=== PATIENT | female | born 1990 | race Caucasian/White ===

== ENCOUNTER 2016-06-30 13:15 | Emergency (ER) | payer OTHER, SELFPAY ==
--- NOTE | 2016-06-30 16:34 | EDDOCDS ---
Nurse's Notes [facility] Name: Gema Luna Age: 25 yrs Sex: Female : 1990 Arrival Date: 06/30/2016 Time: 13:15 Bed Triage 1 Private MD: Erika Najera M. Diagnosis: Other chest pain-reproducible;Strain of muscle and tendon of back wall of thorax Presentation: 06/30 13:23 Presenting complaint: Patient states: chest pain and tightness intermittently x1 week. ttb Worsening today. "Anxious" because it happens quickly. Some SOB. Denies Gi symptoms. Denies dizziness. Aspirin was not taken prior to arrival. Adult Sepsis Screening: The patient does not have new or worsening altered mentation. Patient's respiratory rate is less than 22. Systolic blood pressure is greater than 100. Patient has a qSOFA score of 0- Negative Sepsis Screen. Suicide/Homicide risk assessment- the patient denies having any suicidal and/or homicidal ideations and does not present with any other emotional, behavioral or mental health complaints. Status: Patient is not a septic tank servicer or dependent. Transition of care: patient was not received from another setting of care. 13:23 Acuity: AMELIA Level 3 ttb 13:23 Method Of Arrival: Walkin/Carried/Asstd ttb Triage Assessment: 13:25 General: Appears uncomfortable, well nourished, well groomed, Behavior is anxious, ttb appropriate for age, cooperative, pleasant, restless. Pain: Location: generalized chest, middle Pain currently is 5 out of 10 on a pain scale. HIV screening NA for this visit Offered previously. Neurological: Level of Consciousness is awake, alert. Cardiovascular: Chest pain is described as Pain is 5 out of 10 on a pain scale. radiates Does not radiate. episodes are intermittent began intermittent prior to arrival x1 week. Respiratory: No deficits noted. Airway is patent Respiratory effort is even, unlabored, Denies cough, shortness of breath. GI: Denies nausea, vomiting, pain. : Denies burning with urination. Derm: Skin is normal. Injury Description: No known injury. CORPORATE DIRECTOR OF HUMAN RESOURCES: 13:25 LMP N/A - control method ttb Historical: - Allergies: SULFA (SULFONAMIDES); - Home Meds: 1. none - PMHx: none; - PSHx: Cesearean Section; - Social history: Smoking status: Patient states was never smoker of tobacco. Patient/guardian denies using alcohol, street drugs, No barriers to communication noted, The patient speaks fluent Greek, Speaks appropriately for age. - Family history: Not pertinent. - : The pt / caregiver states he / she is not on anticoagulants. Home medication list is obtained from the patient. - Exposure Risk Screening:: None identified. Screenin:28 Screening information is obtained from the patient. Fall risk: No risks identified. ttb Assistance ADL's: requires no assistance with activities of daily living. Abuse/DV Screen: The patient / caregiver reports he/she is: not in a situation that causes fear, pain or injury. Nutritional screening: No deficits noted. Advance Directives: Currently, there is no health care proxy. home support is adequate. Assessment: 16:28 Adult Sepsis Screening: The patient does not have new or worsening altered mentation. ttb Patient's respiratory rate is less than 22. Systolic blood pressure is greater than 100. Patient has a qSOFA score of 0- Negative Sepsis Screen. General: Appears in no apparent distress, well nourished, well groomed, Behavior is anxious, appropriate for age, cooperative, pleasant. Pain: Location: mid chest. Neurological: Level of Consciousness is awake, alert. Cardiovascular: Rhythm is see EKG report. Respiratory: No deficits noted. Airway is patent Respiratory effort is even, unlabored, Denies cough, shortness of breath. GI: Denies vomiting. Derm: Skin is normal. Injury Description: No known injury. Vital Signs: 13:16 BP 169 / 83; Pulse 108; Resp 20; Temp 98.2(O); Pulse Ox 100% on R/A; Weight 178.72 kg elp (R); Height 5 ft. 7 in. (170.18 cm) (R); Pain 5/10; 16:28 BP 169 / 89; Pulse 101; Resp 18; Temp 99.3; Pulse Ox 100% ; Pain 4/10; cmb 13:16 Body Mass Index 61.71 (178.72 kg, 170.18 cm) [facility] Vitals: 13:16 Log In Time: June 30, 2016 at 13:14. [facility] ED Course: 13:16 Patient visited by Adalgisa Griffin PCA. elp 13:16 Erika Najera is Private Physician. elp 13:16 Patient moved to Waiting elp 13:18 Patient visited by Adalgisa Griffin PCA. elp 13:18 Patient moved to Pre RCE elp 13:24 Triage Initiated ttb 13:35 EKG done. (by ED staff). Reviewed by Medina Haro MD. cmb 13:42 Patient name changed from Gema\\S\\Erika\\S\\Luna\\S\\ to Gema\\S\\A\\S\\Luna. EDMS 13:43 [facility] Payment Agreement was scanned into [employer] and attached to record. lg 15:23 Patient moved to Triage 1 cmb 16:08 [facility]. btw 16:08 Medina Haro MD is Attending Physician. btw 16:08 Patient visited by Stanford Valero PA. btw 16:26 Erika Najera is Referral Physician. btw 16:28 The patient / caregiver is instructed regarding the plan of care and ED course. ttb Accompanied by Family Member, Patient has correct armband on for positive identification. see EKG. 16:28 No IV's were initiated during this patient's visit. No procedures done that require ttb assistance. Order Results: There are currently no results for this order. Outcome: 16:27 Discharge ordered by Provider. btw 16:28 Discharge Assessment: Patient awake, alert and oriented x 3. No cognitive and/or ttb functional deficits noted. Patient verbalized understanding of disposition instructions. Patient awake and alert. patient administered narcotics - no. The following High Risk Discharge criteria are identified: None. Discharged to home ambulatory, with family. Condition: good Condition: stable Condition: improved. Discharge instructions given to patient, family, Instructed on discharge instructions, follow up and referral plans. medication usage, Demonstrated understanding of instructions, medications, Pt was receptive of discharge instructions/ teaching. Prescriptions given X 1, 2. No special radiology studies were completed. Property :Personal belongings accompany Pt. 16:33 Patient left the ED. ttb Signatures: Dispatcher [employer] EDSD Chinmay Chua, Mor Reg lg Stanford Valero PA PA btw Janie Mujica cmb Kay Cruz RN RN ttb Patchen, Adalgisa, SUPPLY ROOM CLERK SUPPLY ROOM CLERK elp MTDD
--- NOTE | 2016-06-30 16:34 | EDDOCDS ---
Physician Documentation [facility] Name: Gema Luna Age: 25 yrs Sex: Female : 1990 Arrival Date: 06/30/2016 Time: 13:15 Bed Triage 1 Private MD: Erika Najera M. Disposition: 06/30/16 16:27 Discharged to Home/Self Care. Impression: Other chest pain - reproducible, Strain of muscle and tendon of back wall of thorax. - Condition is Stable. - Discharge Instructions: Chest Wall Pain, Sglr-fg-Judi, Thoracic Strain, Sjqx-sa-Ozzp, Nonspecific Chest Pain, Obeh-uh-Dzff. - Prescriptions for Diclofenac Sodium 75 mg Oral Tablet, Delayed Release (E.C.) - take 1 tablet by ORAL route 2 times per day; 30 tablet. Robaxin- 750 750 mg Oral Tablet - take 1 tablet by ORAL route every 6 hours As needed; 40 tablet. - Medication Reconciliation, Local Pharmacy Hours form. - Follow up: Erika Najera; When: Call to arrange an appointment; Reason: Further diagnostic work-up, Recheck today's complaints, Continuance of care. - Problem is new. - Symptoms are unchanged. Historical: - Allergies: SULFA (SULFONAMIDES); - Home Meds: 1. none - PMHx: none; - PSHx: Cesearean Section; - Social history: Smoking status: Patient states was never smoker of tobacco. Patient/guardian denies using alcohol, street drugs, No barriers to communication noted, The patient speaks fluent Divehi, Speaks appropriately for age. - Family history: Not pertinent. - : The pt / caregiver states he / she is not on anticoagulants. Home medication list is obtained from the patient. - Exposure Risk Screening:: None identified. QUALITY ASSURANCE MONITOR BODY: 06/30 13:25 LMP N/A - control method ttb Vital Signs: 13:16 BP 169 / 83; Pulse 108; Resp 20; Temp 98.2(O); Pulse Ox 100% on R/A; Weight 178.72 kg / elp 394.01 lbs (R); Height 5 ft. 7 in. (170.18 cm) (R); Pain 5/10; 16:28 BP 169 / 89; Pulse 101; Resp 18; Temp 99.3; Pulse Ox 100% ; Pain 4/10; cmb 13:16 Body Mass Index 61.71 (178.72 kg, 170.18 cm) elp MDM: 13:28 ECG WITH READING ER PHYS+CARDIAG ordered. EDMS 13:43 [facility] Payment Agreement was scanned into [employer] and attached to record. lg 16:12 Financial registration complete. [email or web address] Signatures: Dispatcher [employer] EDMS Chinmay Chua, Reg Reg lg Stanford Valero, Kay Best RN RN Anila Trotter The chart was reviewed and I authenticate all verbal orders and agree with the evaluation and treatment provided.Attachments: 13:43 [facility] Payment Agreement lg MTDD
--- NOTE | 2016-07-01 06:48 | ECGEPIP ---
Stationary ECG Study [facility] - ED Test Date: 2016-06-30 Pat Name: JARED CASTELLON Department: Room: - Gender: F Pole Framer: hieu : 1990 Requested By: MATHEW Pablo Order Number: [id number] Reading MD: Rianna Garcia Measurements Intervals [place] Rate: 100 P: 39 VT: 156 QRS: 26 QRSD: 96 T: 29 QT: 349 QTc: 450 Interpretive Statements SINUS TACHYCARDIA ABNORMAL RHYTHM ECG SIMILAR 01/31/13 Electronically Signed On 07-01-2016 6:48:35 EST by Rianna Garcia
--- NOTE | 2016-07-02 17:33 | EDDOCDS ---
Physician Documentation [facility] Name: Gema Luna Age: 25 yrs Sex: Female : 1990 Arrival Date: 06/30/2016 Time: 13:15 Bed Triage 1 Private MD: Erika Najera M. Disposition: 06/30/16 16:27 Discharged to Home/Self Care. Impression: Other chest pain - reproducible, Strain of muscle and tendon of back wall of thorax. - Condition is Stable. - Discharge Instructions: Chest Wall Pain, Tuny-uz-Ugnp, Thoracic Strain, Lrnx-dy-Ggzd, Nonspecific Chest Pain, Thro-kv-Tcau. - Prescriptions for Diclofenac Sodium 75 mg Oral Tablet, Delayed Release (E.C.) - take 1 tablet by ORAL route 2 times per day; 30 tablet. Robaxin- 750 750 mg Oral Tablet - take 1 tablet by ORAL route every 6 hours As needed; 40 tablet. - Medication Reconciliation, Local Pharmacy Hours form. - Follow up: Erika Najera; When: Call to arrange an appointment; Reason: Further diagnostic work-up, Recheck today's complaints, Continuance of care. - Problem is new. - Symptoms are unchanged. Historical: - Allergies: SULFA (SULFONAMIDES); - Home Meds: 1. none - PMHx: none; - PSHx: Cesearean Section; - Social history: Smoking status: Patient states was never smoker of tobacco. Patient/guardian denies using alcohol, street drugs, No barriers to communication noted, The patient speaks fluent Tamazight, Speaks appropriately for age. - Family history: Not pertinent. - : The pt / caregiver states he / she is not on anticoagulants. Home medication list is obtained from the patient. - Exposure Risk Screening:: None identified. SAS STATISTICAL PROGRAMMER: 06/30 13:25 LMP N/A - control method ttb Vital Signs: 13:16 BP 169 / 83; Pulse 108; Resp 20; Temp 98.2(O); Pulse Ox 100% on R/A; Weight 178.72 kg / elp 394.01 lbs (R); Height 5 ft. 7 in. (170.18 cm) (R); Pain 5/10; 16:28 BP 169 / 89; Pulse 101; Resp 18; Temp 99.3; Pulse Ox 100% ; Pain 4/10; cmb 13:16 Body Mass Index 61.71 (178.72 kg, 170.18 cm) elp MDM: 13:28 ECG WITH READING ER PHYS+CARDIAG ordered. EDMS 13:43 [facility] Payment Agreement was scanned into [employer] and attached to record. lg 16:12 Financial registration complete. gjb 07/01 12:12 T-Sheet-- Draft Copy was scanned into [employer] and attached to record. gb 12:12 ECG/EKG was scanned into [employer] and attached to record. gb Signatures: Dispatcher [employer] EDMS Neida Su, Reg Reg gb Chinmay Chua, Reg Reg lg Stanford Valero PA PA btw Conner, Teresa, RN RN Anila Trotter The chart was reviewed and I authenticate all verbal orders and agree with the evaluation and treatment provided.Attachments: 06/30 13:43 [facility] Payment Agreement lg 07/01 12:12 T-Sheet-- Draft Copy gb 12:12 ECG/EKG gb Chart Complete MTDD
--- NOTE | 2016-07-02 17:34 | EDDOCDS ---
Physician Documentation [facility] Name: Gema Luna Age: 25 yrs Sex: Female : 1990 Arrival Date: 06/30/2016 Time: 13:15 Bed Triage 1 Private MD: Erika Najera M. Disposition: 06/30/16 16:27 Discharged to Home/Self Care. Impression: Other chest pain - reproducible, Strain of muscle and tendon of back wall of thorax. - Condition is Stable. - Discharge Instructions: Chest Wall Pain, Hdjg-nv-Zsxo, Thoracic Strain, Lejc-vh-Kumy, Nonspecific Chest Pain, Jhqi-sc-Nvvp. - Prescriptions for Diclofenac Sodium 75 mg Oral Tablet, Delayed Release (E.C.) - take 1 tablet by ORAL route 2 times per day; 30 tablet. Robaxin- 750 750 mg Oral Tablet - take 1 tablet by ORAL route every 6 hours As needed; 40 tablet. - Medication Reconciliation, Local Pharmacy Hours form. - Follow up: Erika Najera; When: Call to arrange an appointment; Reason: Further diagnostic work-up, Recheck today's complaints, Continuance of care. - Problem is new. - Symptoms are unchanged. Historical: - Allergies: SULFA (SULFONAMIDES); - Home Meds: 1. none - PMHx: none; - PSHx: Cesearean Section; - Social history: Smoking status: Patient states was never smoker of tobacco. Patient/guardian denies using alcohol, street drugs, No barriers to communication noted, The patient speaks fluent Khmer, Speaks appropriately for age. - Family history: Not pertinent. - : The pt / caregiver states he / she is not on anticoagulants. Home medication list is obtained from the patient. - Exposure Risk Screening:: None identified. MUSIC AGENT: 06/30 13:25 LMP N/A - control method ttb Vital Signs: 13:16 BP 169 / 83; Pulse 108; Resp 20; Temp 98.2(O); Pulse Ox 100% on R/A; Weight 178.72 kg / elp 394.01 lbs (R); Height 5 ft. 7 in. (170.18 cm) (R); Pain 5/10; 16:28 BP 169 / 89; Pulse 101; Resp 18; Temp 99.3; Pulse Ox 100% ; Pain 4/10; cmb 13:16 Body Mass Index 61.71 (178.72 kg, 170.18 cm) elp MDM: 13:28 ECG WITH READING ER PHYS+CARDIAG ordered. EDMS 13:43 [facility] Payment Agreement was scanned into [employer] and attached to record. lg 16:12 Financial registration complete. gjb 07/01 12:12 T-Sheet-- Draft Copy was scanned into [employer]HOST and attached to record. gb 12:12 ECG/EKG was scanned into [employer] and attached to record. gb Signatures: Dispatcher [employer] EDMS Neida Su, Reg Reg gb Chinmay Chua, Reg Reg lg Stanford Valero PA PA btw Conner, Teresa, RN RN Anila Trotter The chart was reviewed and I authenticate all verbal orders and agree with the evaluation and treatment provided.Attachments: 06/30 13:43 [facility] Payment Agreement lg 07/01 12:12 T-Sheet-- Draft Copy gb 12:12 ECG/EKG gb Chart Complete MTDD
--- NOTE | 2016-07-02 17:35 | EDDOCDS ---
Nurse's Notes [facility] Name: Gema Luna Age: 25 yrs Sex: Female : 1990 Arrival Date: 06/30/2016 Time: 13:15 Bed Triage 1 Private MD: Erika Najera M. Diagnosis: Other chest pain-reproducible;Strain of muscle and tendon of back wall of thorax Presentation: 06/30 13:23 Presenting complaint: Patient states: chest pain and tightness intermittently x1 week. ttb Worsening today. "Anxious" because it happens quickly. Some SOB. Denies Gi symptoms. Denies dizziness. Aspirin was not taken prior to arrival. Adult Sepsis Screening: The patient does not have new or worsening altered mentation. Patient's respiratory rate is less than 22. Systolic blood pressure is greater than 100. Patient has a qSOFA score of 0- Negative Sepsis Screen. Suicide/Homicide risk assessment- the patient denies having any suicidal and/or homicidal ideations and does not present with any other emotional, behavioral or mental health complaints. Status: Patient is not a adult services librarian or dependent. Transition of care: patient was not received from another setting of care. 13:23 Acuity: AMELIA Level 3 ttb 13:23 Method Of Arrival: Walkin/Carried/Asstd ttb Triage Assessment: 13:25 General: Appears uncomfortable, well nourished, well groomed, Behavior is anxious, ttb appropriate for age, cooperative, pleasant, restless. Pain: Location: generalized chest, middle Pain currently is 5 out of 10 on a pain scale. HIV screening NA for this visit Offered previously. Neurological: Level of Consciousness is awake, alert. Cardiovascular: Chest pain is described as Pain is 5 out of 10 on a pain scale. radiates Does not radiate. episodes are intermittent began intermittent prior to arrival x1 week. Respiratory: No deficits noted. Airway is patent Respiratory effort is even, unlabored, Denies cough, shortness of breath. GI: Denies nausea, vomiting, pain. : Denies burning with urination. Derm: Skin is normal. Injury Description: No known injury. MANAGER MARKET RESEARCH: 13:25 LMP N/A - control method ttb Historical: - Allergies: SULFA (SULFONAMIDES); - Home Meds: 1. none - PMHx: none; - PSHx: Cesearean Section; - Social history: Smoking status: Patient states was never smoker of tobacco. Patient/guardian denies using alcohol, street drugs, No barriers to communication noted, The patient speaks fluent Turkish, Speaks appropriately for age. - Family history: Not pertinent. - : The pt / caregiver states he / she is not on anticoagulants. Home medication list is obtained from the patient. - Exposure Risk Screening:: None identified. Screenin:28 Screening information is obtained from the patient. Fall risk: No risks identified. ttb Assistance ADL's: requires no assistance with activities of daily living. Abuse/DV Screen: The patient / caregiver reports he/she is: not in a situation that causes fear, pain or injury. Nutritional screening: No deficits noted. Advance Directives: Currently, there is no health care proxy. home support is adequate. Assessment: 16:28 Adult Sepsis Screening: The patient does not have new or worsening altered mentation. ttb Patient's respiratory rate is less than 22. Systolic blood pressure is greater than 100. Patient has a qSOFA score of 0- Negative Sepsis Screen. General: Appears in no apparent distress, well nourished, well groomed, Behavior is anxious, appropriate for age, cooperative, pleasant. Pain: Location: mid chest. Neurological: Level of Consciousness is awake, alert. Cardiovascular: Rhythm is see EKG report. Respiratory: No deficits noted. Airway is patent Respiratory effort is even, unlabored, Denies cough, shortness of breath. GI: Denies vomiting. Derm: Skin is normal. Injury Description: No known injury. Vital Signs: 13:16 BP 169 / 83; Pulse 108; Resp 20; Temp 98.2(O); Pulse Ox 100% on R/A; Weight 178.72 kg elp (R); Height 5 ft. 7 in. (170.18 cm) (R); Pain 5/10; 16:28 BP 169 / 89; Pulse 101; Resp 18; Temp 99.3; Pulse Ox 100% ; Pain 4/10; cmb 13:16 Body Mass Index 61.71 (178.72 kg, 170.18 cm) [facility] Vitals: 13:16 Log In Time: June 30, 2016 at 13:14. [facility] ED Course: 13:16 Patient visited by Adalgisa Griffin PCA. elp 13:16 Erika Najera is Private Physician. elp 13:16 Patient moved to Waiting elp 13:18 Patient visited by Adalgisa Griffin PCA. elp 13:18 Patient moved to Pre RCE elp 13:24 Triage Initiated ttb 13:35 EKG done. (by ED staff). Reviewed by Medina Haro MD. cmb 13:42 Patient name changed from Gema\\S\\Erika\\S\\Luna\\S\\ to Gema\\S\\A\\S\\Luna. EDMS 13:43 [facility] Payment Agreement was scanned into [employer] and attached to record. lg 15:23 Patient moved to Triage 1 cmb 16:08 Stanford Valero PA is PHCP. btw 16:08 Medina Haro MD is Attending Physician. btw 16:08 Patient visited by Stanford Valero PA. btw 16:26 Erika Najera is Referral Physician. btw 16:28 The patient / caregiver is instructed regarding the plan of care and ED course. ttb Accompanied by Family Member, Patient has correct armband on for positive identification. see EKG. 16:28 No IV's were initiated during this patient's visit. No procedures done that require ttb assistance. 07/01 06:54 EKG-ADULT Returned. EDMS 12:12 T-Sheet-- Draft Copy was scanned into [employer] and attached to record. gb 12:12 ECG/EKG was scanned into [employer] and attached to record. gb Order Results: Radiology Order: EKG-ADULT Test: EKG-ADULT REASON FOR EXAMINATION: Chest Pain; Stationary ECG Study; [facility] - ED; ; Test Date: 2016-06-30; Pat Name: GEMA LUNA Department:; Room: -; Gender: F Mailing Section Clerk: hieu; : 1990 Requested By: MEDINA Pablo; Order Number: [id number] Reading MD: Rianna Garcia; Measurements; Intervals [place]; Rate: 100 P: 39; IA: 156 QRS: 26; QRSD: 96 T: 29; QT: 349; QTc: 450; Interpretive Statements; SINUS TACHYCARDIA; ABNORMAL RHYTHM ECG; SIMILAR 01/31/13; Electronically Signed On 07-01-2016 6:48:35 EST by Rianna Garcia; Outcome: 06/30 16:27 Discharge ordered by Provider. btw 16:28 Discharge Assessment: Patient awake, alert and oriented x 3. No cognitive and/or ttb functional deficits noted. Patient verbalized understanding of disposition instructions. Patient awake and alert. patient administered narcotics - no. The following High Risk Discharge criteria are identified: None. Discharged to home ambulatory, with family. Condition: good Condition: stable Condition: improved. Discharge instructions given to patient, family, Instructed on discharge instructions, follow up and referral plans. medication usage, Demonstrated understanding of instructions, medications, Pt was receptive of discharge instructions/ teaching. Prescriptions given X 1, 2. No special radiology studies were completed. Property :Personal belongings accompany Pt. 16:33 Patient left the ED. ttb Signatures: Dispatcher [employer] EDMS Neida Su, Reg Reg gb Chinmay Chua, Reg Reg lg Stanford Valero PA PA btw Janie Mujica Teresa, RN RN ttb Adalgisa Griffin PCA ACCOUNT COLLECTOR elp Chart Complete JASEN
--- NOTE | 2016-07-07 14:08 | EDDOCDS ---
Physician Documentation [facility] Name: Gema Luna Age: 25 yrs Sex: Female : 1990 Arrival Date: 06/30/2016 Time: 13:15 Bed Triage 1 Private MD: Erika Najera M. Disposition: 06/30/16 16:27 Discharged to Home/Self Care. Impression: Other chest pain - reproducible, Strain of muscle and tendon of back wall of thorax. - Condition is Stable. - Discharge Instructions: Chest Wall Pain, Lqxl-rl-[id number], Thoracic Strain, Yksn-nu-Yvgg, Nonspecific Chest Pain, Ayyj-fk-Bxtc. - Prescriptions for Diclofenac Sodium 75 mg Oral Tablet, Delayed Release (E.C.) - take 1 tablet by ORAL route 2 times per day; 30 tablet. Robaxin- 750 750 mg Oral Tablet - take 1 tablet by ORAL route every 6 hours As needed; 40 tablet. - Medication Reconciliation, Local Pharmacy Hours form. - Follow up: Erika Najera; When: Call to arrange an appointment; Reason: Further diagnostic work-up, Recheck today's complaints, Continuance of care. - Problem is new. - Symptoms are unchanged. Historical: - Allergies: SULFA (SULFONAMIDES); - Home Meds: 1. none - PMHx: none; - PSHx: Cesearean Section; - Social history: Smoking status: Patient states was never smoker of tobacco. Patient/guardian denies using alcohol, street drugs, No barriers to communication noted, The patient speaks fluent Indonesian, Speaks appropriately for age. - Family history: Not pertinent. - : The pt / caregiver states he / she is not on anticoagulants. Home medication list is obtained from the patient. - Exposure Risk Screening:: None identified. DISASTER RECOVERY ANALYST: 06/30 13:25 LMP N/A - control method ttb Vital Signs: 13:16 BP 169 / 83; Pulse 108; Resp 20; Temp 98.2(O); Pulse Ox 100% on R/A; Weight 178.72 kg / elp 394.01 lbs (R); Height 5 ft. 7 in. (170.18 cm) (R); Pain 5/10; 16:28 BP 169 / 89; Pulse 101; Resp 18; Temp 99.3; Pulse Ox 100% ; Pain 4/10; cmb 13:16 Body Mass Index 61.71 (178.72 kg, 170.18 cm) elp MDM: 13:28 ECG WITH READING ER PHYS+CARDIAG ordered. EDMS 13:43 [facility] was scanned into [employer] and attached to record. lg 16:12 Financial registration complete. gjb 07/01 12:12 T-Sheet-- Draft Copy was scanned into MEDHOST and attached to record. gb 12:12 ECG/EKG was scanned into MED[employer] and attached to record. gb Signatures: Dispatcher [employer] EDMS Neida Su, Reg Reg gb Chinmay Chua, Reg Reg lg Stanford Valero PA PA btw Conner, Teresa RN RN Anila Trotter The chart was reviewed and I authenticate all verbal orders and agree with the evaluation and treatment provided.Attachments: 06/30 13:43 [facility] [place] Agreement lg 12:12 ECG/EKG gb Chart Complete MTDD
--- NOTE | 2016-07-07 14:08 | EDDOCDS ---
Nurse's Notes [facility] Name: Gema Luna Age: 25 yrs Sex: Female : 1990 Arrival Date: 06/30/2016 Time: 13:15 Bed Triage 1 Private MD: Erika Najera M. Diagnosis: Other chest pain-reproducible;Strain of muscle and tendon of back wall of thorax Presentation: 06/30 13:23 Presenting complaint: Patient states: chest pain and tightness intermittently x1 week. ttb Worsening today. "Anxious" because it happens quickly. Some SOB. Denies Gi symptoms. Denies dizziness. Aspirin was not taken prior to arrival. Adult Sepsis Screening: The patient does not have new or worsening altered mentation. Patient's respiratory rate is less than 22. Systolic blood pressure is greater than 100. Patient has a qSOFA score of 0- Negative Sepsis Screen. Suicide/Homicide risk assessment- the patient denies having any suicidal and/or homicidal ideations and does not present with any other emotional, behavioral or mental health complaints. 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 Transition of care: patient was not received from another setting of care. 13:23 Acuity: AMELIA Level 3 ttb 13:23 Method Of Arrival: Walkin/Carried/Asstd ttb Triage Assessment: 13:25 General: Appears uncomfortable, well nourished, well groomed, Behavior is anxious, ttb appropriate for age, cooperative, pleasant, restless. Pain: Location: generalized chest, middle Pain currently is 5 out of 10 on a pain scale. HIV screening NA for this visit Offered previously. Neurological: Level of Consciousness is awake, alert. Cardiovascular: Chest pain is described as Pain is 5 out of 10 on a pain scale. radiates Does not radiate. episodes are intermittent began intermittent prior to arrival x1 week. Respiratory: No deficits noted. Airway is patent Respiratory effort is even, unlabored, Denies cough, shortness of breath. GI: Denies nausea, vomiting, pain. : Denies burning with urination. Derm: Skin is normal. Injury Description: No known injury. 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 none - PMHx: none; - PSHx: Cesearean Section; - Social history: Smoking status: Patient states was never smoker of tobacco. Patient/guardian denies using alcohol, street drugs, No barriers to communication noted, The patient speaks fluent Danish, Speaks appropriately for age. - Family history: Not pertinent. - : The pt / caregiver states he / she is not on anticoagulants. Home medication list is obtained from the patient. - Exposure Risk Screening:: None identified. Screenin:28 Screening information is obtained from the patient. Fall risk: No risks identified. ttb Assistance ADL's: requires no assistance with activities of daily living. Abuse/DV Screen: The patient / caregiver reports he/she is: not in a situation that causes fear, pain or injury. Nutritional screening: No deficits noted. Advance Directives: Currently, there is no health care proxy. home support is adequate. Assessment: 16:28 Adult Sepsis Screening: The patient does not have new or worsening altered mentation. ttb Patient's respiratory rate is less than 22. Systolic blood pressure is greater than 100. Patient has a qSOFA score of 0- Negative Sepsis Screen. General: Appears in no apparent distress, well nourished, well groomed, Behavior is anxious, appropriate for age, cooperative, pleasant. Pain: Location: mid chest. Neurological: Level of Consciousness is awake, alert. Cardiovascular: Rhythm is see EKG report. Respiratory: No deficits noted. Airway is patent Respiratory effort is even, unlabored, Denies cough, shortness of breath. GI: Denies vomiting. Derm: Skin is normal. Injury Description: No known injury. Vital Signs: 13:16 BP 169 / 83; Pulse 108; Resp 20; Temp 98.2(O); Pulse Ox 100% on R/A; Weight 178.72 kg elp (R); Height 5 ft. 7 in. (170.18 cm) (R); Pain 5/10; 16:28 BP 169 / 89; Pulse 101; Resp 18; Temp 99.3; Pulse Ox 100% ; Pain 4/10; cmb 13:16 Body Mass Index 61.71 (178.72 kg, 170.18 cm) [facility] Vitals: 13:16 Log In Time: June 30, 2016 at 13:14. [facility] ED Course: 13:16 Patient visited by Adalgisa Griffin PCA. elp 13:16 Erika Najera is Private Physician. elp 13:16 Patient moved to Waiting elp 13:18 Patient visited by Adalgisa Griffin PCA. elp 13:18 Patient moved to Pre RCE elp 13:24 Triage Initiated ttb 13:35 EKG done. (by ED staff). Reviewed by Medina Haro MD. cmb 13:42 Patient name changed from Gema\\S\\Erika\\S\\Luna\\S\\ to Gema\\S\\A\\S\\Luna. EDMS 13:43 [facility] [place] Payment Agreement was scanned into [employer] E[employer] and attached to record. lg 15:23 Patient moved to Triage 1 cmb 16:08 Stanford Valero PA is PHCP. btw 16:08 Medina Haro MD is Attending Physician. btw 16:08 Patient visited by Stanford Valero PA. btw 16:26 Erika Najera is Referral Physician. btw 16:28 The patient / caregiver is instructed regarding the plan of care and ED course. ttb Accompanied by Family Member, Patient has correct armband on for positive identification. see EKG. 16:28 No IV's were initiated during this patient's visit. No procedures done that require ttb assistance. 07/01 06:54 EKG-ADULT Returned. EDMS 12:12 T-Sheet-- Draft Copy was scanned into [employer] E[employer] and attached to record. gb 12:12 ECG/EKG was scanned into [employer] E[employer] and attached to record. gb Order Results: Radiology Order: EKG-ADULT Test: EKG-ADULT REASON FOR EXAMINATION: Chest Pain; Stationary ECG Study; [facility] - ED; ; Test Date: 2016-06-30; Pat Name: GEMA LUNA Department:; Room: -; Gender: F Sheriffs: hieu; : 1990 Requested By: MEDINA Pablo; Order Number: [id number] Reading MD: Rianna Garcia; Measurements; Intervals [place]; Rate: 100 P: 39; WI: 156 QRS: 26; QRSD: 96 T: 29; QT: 349; QTc: 450; Interpretive Statements; SINUS TACHYCARDIA; ABNORMAL RHYTHM ECG; SIMILAR 01/31/13; Electronically Signed On 07-01-2016 6:48:35 EST by Rianna Garcia; Outcome: 06/30 16:27 Discharge ordered by Provider. btw 16:28 Discharge Assessment: Patient awake, alert and oriented x 3. No cognitive and/or ttb functional deficits noted. Patient verbalized understanding of disposition instructions. Patient awake and alert. patient administered narcotics - no. The following High Risk Discharge criteria are identified: None. Discharged to home ambulatory, with family. Condition: good Condition: stable Condition: improved. Discharge instructions given to patient, family, Instructed on discharge instructions, follow up and referral plans. medication usage, Demonstrated understanding of instructions, medications, Pt was receptive of discharge instructions/ teaching. Prescriptions given X 1, 2. No special radiology studies were completed. Property :Personal belongings accompany Pt. 16:33 Patient left the ED. ttb Signatures: Dispatcher [employer] EDMS Neida Su, Reg Reg gb Chinmay Chua, Reg Reg lg Stanford Valero PA PA btw Janie Mujica Teresa, RN RN ttb Adalgisa Griffin PCA SECURITY STRATEGIST elp Chart Complete JASEN
--- NOTE | 2016-07-07 14:08 | EDDOCDS ---
Physician Documentation [facility] Name: Gema Luna Age: 25 yrs Sex: Female : 1990 Arrival Date: 06/30/2016 Time: 13:15 Bed Triage 1 Private MD: Erika Najera M. Disposition: 06/30/16 16:27 Discharged to Home/Self Care. Impression: Other chest pain - reproducible, Strain of muscle and tendon of back wall of thorax. - Condition is Stable. - Discharge Instructions: Chest Wall Pain, Ygyu-qe-[id number], Thoracic Strain, Gnfo-ts-Tcck, Nonspecific Chest Pain, Nivr-tr-Yvim. - Prescriptions for Diclofenac Sodium 75 mg Oral Tablet, Delayed Release (E.C.) - take 1 tablet by ORAL route 2 times per day; 30 tablet. Robaxin- 750 750 mg Oral Tablet - take 1 tablet by ORAL route every 6 hours As needed; 40 tablet. - Medication Reconciliation, Local Pharmacy Hours form. - Follow up: Erika Najera; When: Call to arrange an appointment; Reason: Further diagnostic work-up, Recheck today's complaints, Continuance of care. - Problem is new. - Symptoms are unchanged. Historical: - Allergies: SULFA (SULFONAMIDES); - Home Meds: 1. none - PMHx: none; - PSHx: Cesearean Section; - Social history: Smoking status: Patient states was never smoker of tobacco. Patient/guardian denies using alcohol, street drugs, No barriers to communication noted, The patient speaks fluent Tajik, Speaks appropriately for age. - Family history: Not pertinent. - : The pt / caregiver states he / she is not on anticoagulants. Home medication list is obtained from the patient. - Exposure Risk Screening:: None identified. 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 7 in. (170.18 cm) (R); Pain 5/10; 16:28 BP 169 / 89; Pulse 101; Resp 18; Temp 99.3; Pulse Ox 100% ; Pain 4/10; cmb 13:16 Body Mass Index 61.71 (178.72 kg, 170.18 cm) elp MDM: 13:28 ECG WITH READING ER PHYS+CARDIAG ordered. EDMS 13:43 [facility] [place] Payment Agreement was scanned into MED[employer] and attached to record. lg 16:12 Financial registration complete. gjb 07/01 12:12 T-Sheet-- Draft Copy was scanned into MEDHOST and attached to record. gb 12:12 ECG/EKG was scanned into MEDHOST and attached to record. gb Signatures: Dispatcher [employer] EDMS Neida Su, Reg Reg gb Chnimay Chua, Reg Reg lg Stanford Valero PA PA btw Conner, Teresa RN RN Anila Trotter The chart was reviewed and I authenticate all verbal orders and agree with the evaluation and treatment provided.Attachments: 06/30 13:43 [facility] [place] Payment Agreement lg 12:12 ECG/EKG gb Chart Complete MTDD
== END 2016-06-30 16:33 | disposition home or self-care (01) ==
LOC: M ED 13:15
DX: R07.9 Chest pain, unspecified (principal); M54.6 Pain in thoracic spine; Z88.2 Allergy status to sulfonamides

== ENCOUNTER 2017-01-10 08:19 | Emergency (ER) | payer SELFPAY ==
[~2017-01-10] VITALS: Ht 170.2 cm; Wt 154.6 kg
[2017-01-10 08:30] VITALS: BP 169/85
[2017-01-10] MEDS ORDERED: PHENAZOPYRIDINE 100 MG TAB PO ONE (09:30)
[2017-01-10] MEDS ORDERED: ACETAMINOPHEN 325 MG TAB PO ONE (09:30)
[2017-01-10 09:54] LABS: CONTROL LINE UCG INT CTR LINE PRESENT
[2017-01-10] MEDS ORDERED: PYRI1TAB5 PO (09:59)
[2017-01-10] MEDS ORDERED: CIPR-249 PO (09:59)
== END 2017-01-10 10:06 | disposition home or self-care (01) ==
LOC: M ED 08:19
DX: N39.0 Urinary tract infection, site not specified (principal); Z87.891 Personal history of nicotine dependence; Z88.2 Allergy status to sulfonamides

== ENCOUNTER 2017-10-28 08:01 | Emergency (ER) | payer MEDICAID, SELFPAY | END 2017-10-28 08:39 | disposition home or self-care (01) | LOC: M ED 08:01 | DX: Z20.7 Contact with and (suspected) exposure to pediculosis, acariasis and other infestations (principal) | CPT/HCPCS: 99282 ==

== ENCOUNTER → 2017-12-12 | Outpatient (REF) | payer OTHER ==
[2017-12-12 22:13] LABS: APPEARANCE, URINE HAZY (CLEAR); BACTERIA, URINE AUTO NEGATIVE (NEGATIVE); BILIRUBIN, URINE AUTO NEGATIVE (NEGATIVE); BLOOD, URINE BLOOD NEGATIVE (NEGATIVE); COLOR, URINE YELLOW (YELLOW); GLUCOSE, URINE (UA) AUTO NEGATIVE (NEGATIVE); KETONE, URINE AUTO NEGATIVE (NEGATIVE); LEUKOCYTE ESTERASE, URINE AUTO 1+ (NEGATIVE); MUCUS, URINE SMALL (NEGATIVE); NITRITE, URINE AUTO NEGATIVE (NEGATIVE); PROTEIN, URINE AUTO NEGATIVE (NEGATIVE); RBC, URINE AUTO 1 /HPF (0-3); SPECIFIC GRAVITY URINE AUTO 1.019 (1.002-1.035); SQUAMOUS EPITHELIAL CELL UR AU 4 /HPF (0-6); UROBILINOGEN, URINE AUTO 0.2 mg/dL (0.0-2.0); WBC, URINE AUTO 3 /HPF (0-3)
== END ==
LOC: M LAB REF 09:06
DX: N39.0 Urinary tract infection, site not specified (principal)

== ENCOUNTER → 2018-03-28 | Outpatient (REF) | payer OTHER ==
[2018-03-28 14:59] LABS: APPEARANCE, URINE CLEAR (CLEAR); BACTERIA, URINE AUTO NEGATIVE (NEGATIVE); BILIRUBIN, URINE AUTO NEGATIVE (NEGATIVE); BLOOD, URINE BLOOD NEGATIVE (NEGATIVE); COLOR, URINE YELLOW (YELLOW); GLUCOSE, URINE (UA) AUTO NEGATIVE (NEGATIVE); KETONE, URINE AUTO NEGATIVE (NEGATIVE); LEUKOCYTE ESTERASE, URINE AUTO NEGATIVE (NEGATIVE); MUCUS, URINE SMALL (NEGATIVE); NITRITE, URINE AUTO NEGATIVE (NEGATIVE); PROTEIN, URINE AUTO NEGATIVE (NEGATIVE); RBC, URINE AUTO 0 /HPF (0-3); SPECIFIC GRAVITY URINE AUTO 1.011 (1.002-1.035); SQUAMOUS EPITHELIAL CELL UR AU 1 /HPF (0-6); UROBILINOGEN, URINE AUTO 0.2 mg/dL (0.0-2.0); WBC, URINE AUTO 0 /HPF (0-3)
== END ==
LOC: M LAB REF 13:21
DX: N39.0 Urinary tract infection, site not specified (principal)

== ENCOUNTER → 2018-05-08 | Outpatient (REF) | payer OTHER ==
[2018-05-08 12:54] LABS: BASO % 0.3 % (0.0-1.0); EOS # 0.1 10^3/uL (0.0-0.50); HEMATOCRIT 44.8 % (36.0-47.0); HEMOGLOBIN 14.4 g/dl (12.0-15.5); IMMATURE GRANULOCYTE % 0.3 % (0-3.0); LYMPH # 2.8 10^3/uL (1.5-6.5); LYMPH % 27.7 % (24.0-44.0); MEAN CORPUSCULAR HEMOGLOBIN 27.1 pg (27.0-33.0); MEAN CORPUSCULAR HGB CONC 32.1 g/dl (32.0-36.5); MEAN CORPUSCULAR VOLUME 84.4 fl (80.0-96.0); MONO # 0.8 10^3/uL (0.0-0.8); NEUTROPHILS # 6.4 10^3/uL (1.8-7.7); NEUTROPHILS % 62.7 % (36.0-66.0); PLATELET COUNT, AUTOMATED 315 10^3/uL (150-450); RED BLOOD COUNT 5.31 10^6/uL (4.00-5.40); RED CELL DISTRIBUTION WIDTH 13.5 % (11.5-14.5); WHITE BLOOD COUNT 10.1 10^3/uL (4.0-10.0)
[2018-05-08 13:18] LABS: ALBUMIN 3.6 GM/DL (3.2-5.2); ALKALINE PHOSPHATASE 66 U/L (45-117); ALT/SGPT 32 U/L (12-78); ANION GAP 8 MEQ/L (8-16); AST/SGOT 15 U/L (7-37); BILIRUBIN,TOTAL 0.6 MG/DL (0.2-1.0); BLOOD UREA NITROGEN 9 MG/DL (7-18); CALCIUM LEVEL 8.3 MG/DL (8.5-10.1); CARBON DIOXIDE LEVEL 27 MEQ/L (21-32); CHLORIDE LEVEL 102 MEQ/L (98-107); CHOLESTEROL LEVEL 188 MG/DL (<200); CHOLESTEROL RISK RATIO 5.222 (<5); GLOMERULAR FILTRATION RATE > 60.0 (>60); GLUCOSE, FASTING 89 MG/DL (70-100); HDL CHOLESTEROL 36 MG/DL (>40); LDL CHOLESTEROL 119 MG/DL (<100); NON-HDL-C 152 MG/DL; POTASSIUM SERUM 4.1 MEQ/L (3.5-5.1); SODIUM LEVEL 137 MEQ/L (136-145); TOTAL PROTEIN 7.2 GM/DL (6.4-8.2); TRIGLYCERIDES LEVEL 163 MG/DL (<150)
[2018-05-08 14:01] LABS: ESTIMATED AVERAGE GLUCOSE 114 MG/DL (60-110); HEMOGLOBIN A1c 5.6 %; TOTAL 25(OH) VITAMIN D 20.5 NG/ML (30.0-100.0)
[2018-05-08 14:03] LABS: FOLATE 9.8 NG/ML; VITAMIN B12 LEVEL 779 PG/ML
== END ==
LOC: M LAB REF 11:59
DX: Z13.9 Encounter for screening, unspecified (principal)
CPT/HCPCS: 82746

== ENCOUNTER → 2018-10-22 | Outpatient (REF) | payer OTHER ==
[~2018-10-22] MED LIST: CIPR-249 PO; ELIM5CRE2 TOP; NAPR-885 PO; PYRI1TAB5 PO
== END ==
LOC: M LAB REF 19:06
PROVIDERS: ATTEND Nurse Practitioner Family
DX: J02.9 Acute pharyngitis, unspecified (principal)

== ENCOUNTER 2018-11-09 21:09 | Emergency (ER) | payer OTHER ==
[~2018-11-09] VITALS: Ht 170.2 cm; Wt 202.3 kg
[2018-11-09] MEDS ORDERED: METR-265 (21:24)
[2018-11-09 22:46] LABS: BASO % 0.4 % (0.0-1.0); EOS # 0.1 10^3/uL (0.0-0.50); EOS % 0.7 % (0.0-3.0); HEMATOCRIT 40.5 % (36.0-47.0); HEMOGLOBIN 13.4 g/dl (12.0-15.5); LYMPH # 1.7 10^3/uL (1.5-4.5); LYMPH % 15.9 % (24.0-44.0); MEAN CORPUSCULAR HEMOGLOBIN 28.1 pg (27.0-33.0); MEAN CORPUSCULAR HGB CONC 33.1 g/dl (32.0-36.5); MEAN CORPUSCULAR VOLUME 84.9 fl (80.0-96.0); MONO % 9.3 % (0.0-5.0); NEUTROPHILS # 7.9 10^3/uL (1.8-7.7); NEUTROPHILS % 73.4 % (36.0-66.0); PLATELET COUNT, AUTOMATED 267 10^3/uL (150-450); RED BLOOD COUNT 4.77 10^6/uL (4.00-5.40); WHITE BLOOD COUNT 10.8 10^3/uL (4.0-10.0)
[2018-11-09 23:19] LABS: ALBUMIN 3.2 GM/DL (3.2-5.2); ALT/SGPT 36 U/L (12-78); BILIRUBIN,TOTAL 0.3 MG/DL (0.2-1.0); BLOOD UREA NITROGEN 12 MG/DL (7-18); CALCIUM LEVEL 8.3 MG/DL (8.5-10.1); CARBON DIOXIDE LEVEL 28 MEQ/L (21-32); CHLORIDE LEVEL 106 MEQ/L (98-107); CK-MB VALUE MASS < 1.0 NG/ML (<3.6); CPK CREATINE PHOSPHOKINASE 174 U/L (26-192); CREATININE FOR GFR 0.92 MG/DL (0.55-1.30); GLOMERULAR FILTRATION RATE > 60.0 (>60); GLUCOSE, FASTING 143 MG/DL (70-100); MB/CK RELATIVE INDEX 0.57 (< OR =4); POTASSIUM SERUM 4.2 MEQ/L (3.5-5.1); SODIUM LEVEL 140 MEQ/L (136-145); TOTAL PROTEIN 7.2 GM/DL (6.4-8.2); TROPONIN I < 0.02 NG/ML (< 0.10)
[2018-11-09] MEDS ORDERED: ISOVUE-370 76% 100ML VIAL (Q9967) As Ordered ONE (23:23)
--- NOTE | 2018-11-09 23:52 | REPVR ---
EXAM: CT Angiography Chest With Contrast EXAM DATE/TIME: 11/09/2018 11:30 PM CLINICAL HISTORY: 28 years old, female; Pain and signs and symptoms; Shortness of breath; Chest pain; Type not specified; Prior surgery; Surgery date: 3-7 days post-operative; Additional info: Cp/sob/recent surgery-ro pe TECHNIQUE: Imaging protocol: Axial computed tomographic angiography images of the chest with intravenous contrast using CT angiography protocol. Coronal and sagittal reformatted images were created and reviewed. 3D rendering: MIP reconstructed images were created and reviewed. Radiation optimization: All CT scans at this facility use at least one of these dose optimization techniques: automated exposure control; mA and/or kV adjustment per patient size (includes targeted exams where dose is matched to clinical indication); or iterative reconstruction. Contrast material: ISOVUE 370; Contrast volume: 100 ml; Contrast route: IV COMPARISON: CT ANGIO CHEST 01/31/2013 1:23 PM FINDINGS: Somewhat limited by patient motion and artifact related to body size. Central pulmonary arteries show no intraluminal defect suggestive of clot. No thoracic aortic aneurysm or dissection. No enlarged mediastinal lymph nodes. No pleural effusion. Pulmonary vascular/interstitial pattern does not suggest active pulmonary edema. No suspicious lung mass or air space process. No central endobronchial lesion. Hepatosplenomegaly and hepatic steatosis suspected. Bony structures show no acute fracture or destructive process. IMPRESSION: No evidence of acute, central pulmonary embolus. Peripheral vessel evaluation is limited because of body habitus-related artifact and motion No other acute or concerning focal intrathoracic abnormality. Hepatomegaly and hepatic steatosis Electronically signed by: Jim Rollins On 11/09/2018 23:52:16 PM
--- NOTE | 2018-11-10 01:07 | REPVR ---
EXAM: US Duplex Left Upper Extremity Veins, Limited EXAM DATE/TIME: 11/10/2018 12:55 AM CLINICAL HISTORY: 28 years old, female; Pain; Arn, upper; Left; Additional info: Pain/tingling RO dvt TECHNIQUE: Imaging protocol: Real-time Duplex ultrasound of the Left Upper Extremity with 2-D leblanc scale, color Doppler flow and spectral waveform analysis. Limited exam focused on the left upper extremity veins. COMPARISON: No relevant prior studies available. FINDINGS: Evaluation includes Limited left jugular, left subclavian, left axillary, left basilic, cephalic and brachial veins Normal venous compressibility, with no intraluminal filling defect. Doppler wave forms and flow directionality appear normal. No abnormal focal fluid collections are present. IMPRESSION: No evidence of deep venous thrombosis in left upper extremity venous system. Electronically signed by: Jim Rollins On 11/10/2018 01:07:04 AM
[2018-11-10 02:10] VITALS: BP 141/75
--- NOTE | 2018-11-11 08:23 | ECGEPIP ---
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
== END 2018-11-10 02:19 | disposition home or self-care (01) ==
LOC: M ED 21:09
DX: R07.89 Other chest pain (principal); R00.0 Tachycardia, unspecified; E66.9 Obesity, unspecified; K76.0 Fatty (change of) liver, not elsewhere classified; R16.0 Hepatomegaly, not elsewhere classified; Z88.2 Allergy status to sulfonamides
CPT/HCPCS: 71275; 80047; 80053; 82550; 82553; 84702; 85025; 93005; 93971; 99284; Q9967

== ENCOUNTER → 2018-11-23 | Outpatient (REF) | payer OTHER ==
[~2018-11-23] MED LIST changes: +METR-265
== END ==
LOC: M LAB REF 12:35
PROVIDERS: ATTEND Physician Assistant
DX: R30.0 Dysuria (principal)

== ENCOUNTER → 2019-06-19 | Outpatient (CLI) | payer OTHER | LOC: M PLALAB 14:12 | PROVIDERS: ATTEND Advanced Practice Midwife | DX: Z34.92 Encounter for supervision of normal pregnancy, unspecified, second trimester (principal); Z36.89 Encounter for other specified antenatal screening ==

== ENCOUNTER → 2019-06-26 | Outpatient (CLI) | payer OTHER | LOC: M PLALAB 09:50 | PROVIDERS: ATTEND Advanced Practice Midwife | DX: O99.210 Obesity complicating pregnancy, unspecified trimester (principal); Z34.82 Encounter for supervision of other normal pregnancy, second trimester ==

== ENCOUNTER → 2019-07-06 | Outpatient (CLI) | payer OTHER | LOC: M PLALAB 11:03 | PROVIDERS: ATTEND Advanced Practice Midwife | DX: Z13.79 Encounter for other screening for genetic and chromosomal anomalies (principal) ==

== ENCOUNTER → 2019-07-19 | Outpatient (CLI) | payer OTHER ==
--- NOTE | 2019-07-19 10:26 | REP ---
Clinical: Anatomical evaluation. Comparison: None . Findings: Examination demonstrates a single live intrauterine in transverse (head to maternal right) presentation. motion is identified by technologist. Placenta is noted posterior/left lateral and grade I without evidence for placenta previa or abruption. Amniotic fluid volume is normal. Cervix measures 3.8 cm in length and appears closed. No evidence for nuchal cord. Gestational age by current measurements 18 weeks 3 days with HIEN 12/17/2019 . FHR equals 161 beats per minute. BPD 4.1 cm 18 weeks 3 days HC 15.4 cm 18 weeks 3 days AC 13.0 cm 18 weeks 4 days FL 2.9 cm 18 weeks 6 days HL 2.8 cm 19 weeks 0 days HC/AC ratio 1.1 a Estimated weight 252 grams ( 54th percentile). Anatomical assessment demonstrates normal structures including cranium, choroid plexus, cavum, diaphragm, stomach, cord insertion/three-vessel cord, kidneys/bladder, and extremities. Impression: 1. Single live intrauterine in transverse lie demonstrating appropriate estimated weight. 2. Limited anatomical assessment may warrant reevaluation and follow-up.
== END ==
LOC: M WHC 09:00
PROVIDERS: ATTEND Advanced Practice Midwife
DX: O32.2XX0 Maternal care for transverse and oblique lie, not applicable or unspecified (principal); Z36.89 Encounter for other specified antenatal screening; Z3A.18 18 weeks gestation of pregnancy

== ENCOUNTER → 2019-08-24 | Outpatient (CLI) | payer OTHER ==
--- NOTE | 2019-08-24 13:51 | REP ---
OBSTETRIC SONOGRAPHY: HISTORY: Second trimester study. Follow up anatomy. Supervision of . Comparison study July 19, 2019. FINDINGS: Scanning through the gravid uterus demonstrates a viable single intrauterine gestation in a breech lie. motion is observed and heart rate is recorder 164 beats per minute. A posterior grade 1 placenta is seen without evidence of previa or abruption. Amniotic fluid is subjectively normal. Closed cervical length is measured transabdominally at 3.4 cm. No extrauterine abnormalities observed. There has been appropriate interval growth. No anomaly is seen. The following anatomic structures are identified today and felt to be unremarkable: cranium, choroid plexus, cavum, cerebellum and posterior fossa, nuchal fold face and profile, four-chamber heart with left and right ventricular outflow tract views, diaphragm, left-sided stomach, abdominal wall cord insertion, three-vessel cord, kidneys and bladder, spine, upper and lower extremities. Biometry Chart: BPD 5.8 cm = 23 weeks 6 days HC 21.8 cm = 23 weeks 6 days AC 19.5 cm = 24 weeks 1 day FL 4.6 cm = 25 weeks 2 days HL 4.8 cm = 28 weeks 1 day HC/AC ratio normal 1.12. Cephalic index normal 0.73. Estimated weight 703 grams, 1 pound 8 ounces, 72nd percentile for 23 weeks 4 days. IMPRESSION: Viable single intrauterine gestation at 24 weeks 0 days by today's composite criteria for expected gestational age estimate based on prior sonography is 23 weeks 4 days. HIEN by prior sonography December 17, 2019. anatomic survey is felt to be complete.
== END ==
LOC: M WHC 09:49
PROVIDERS: ATTEND Advanced Practice Midwife
DX: Z34.92 Encounter for supervision of normal pregnancy, unspecified, second trimester (principal); Z36.89 Encounter for other specified antenatal screening; Z3A.23 23 weeks gestation of pregnancy

== ENCOUNTER → 2019-09-21 | Outpatient (REF) | payer OTHER ==
[2019-09-21 17:08] LABS: HEMATOCRIT 38.3 % (36.0-47.0); HEMOGLOBIN 12.4 g/dl (12.0-15.5); MEAN CORPUSCULAR HEMOGLOBIN 27.8 pg (27.0-33.0); MEAN CORPUSCULAR HGB CONC 32.4 g/dl (32.0-36.5); MEAN CORPUSCULAR VOLUME 85.9 fl (80.0-96.0); PLATELET COUNT, AUTOMATED 266 10^3/uL (150-450); RED BLOOD COUNT 4.46 10^6/uL (4.00-5.40); WHITE BLOOD COUNT 13.7 10^3/uL (4.0-10.0)
== END ==
LOC: M PLALAB 11:52
PROVIDERS: ATTEND Advanced Practice Midwife
DX: Z36.89 Encounter for other specified antenatal screening (principal); Z3A.00 Weeks of gestation of pregnancy not specified

== ENCOUNTER → 2019-10-04 | Outpatient (CLI) | payer OTHER | LOC: M LAB 08:01 | PROVIDERS: ATTEND Obstetrics & Gynecology | DX: O99.810 Abnormal glucose complicating pregnancy (principal) ==

== ENCOUNTER → 2019-10-05 | Outpatient (CLI) | payer OTHER ==
--- NOTE | 2019-10-05 10:47 | REP ---
REASON FOR EXAM: Obtain biophysical profile, maternal hypertension. Limited OB ultrasound was ordered and performed. Multiple ultrasonographic images of the gravid uterus show a single living intrauterine gestation in the breech presentation. Doppler interrogation of the heart shows a heart rate of 152 beats per minute. The subjective amniotic fluid volume is within normal limits. The calculated amniotic fluid index is 18.2 with the expected range 9.0-23.4. The cervix measures 3.3 cm in length and is closed. The placenta is posterior and not low lying. biophysical profile is 2 for breathing, 2 for movement, 2 for tone and 2 for amniotic fluid volume giving a sum total of 8 out of 8. No further workup was requested or performed. IMPRESSION: Single living intrauterine gestation as described above.
== END ==
LOC: M WHC 09:31
PROVIDERS: ATTEND Advanced Practice Midwife
DX: O10.919 Unspecified pre-existing hypertension complicating pregnancy, unspecified trimester (principal); O32.1XX0 Maternal care for breech presentation, not applicable or unspecified

== ENCOUNTER → 2019-10-23 | Outpatient (CLI) | payer OTHER ==
[~2019-10-23] MED LIST changes: +ASPI81TA26 PO; +CLAR10CA3 PO; +LABE300T19 PO; +METF500T13 PO; +OMEP-218 PO; +PRENTAB9 PO; +WELLTAB40 PO; +ZOFR4TAB16 PO
--- NOTE | 2019-10-24 02:04 | REP ---
Clinical: Anatomical evaluation. Comparison: well-being 10/05/2019. Findings: Examination demonstrates a single live intrauterine in cephalic presentation. motion is identified by technologist. Placenta is noted posterior and grade I without evidence for placenta previa or abruption. Amniotic fluid volume is normal. Cervix measures 3.0 cm in length and appears closed. No evidence for nuchal cord. Gestational age by first US 32 weeks 1 day with HIEN 12/17/2019 . Gestational age by current measurements 32 weeks 6 days with HIEN 12/12/2019 . FHR equals 142 beats per minute. Biophysical profile score: 8/8 Amniotic fluid index: 12.5 cm Umbilical cord SD ratio: 3.07 Estimated weight 2161 grams ( 66th percentile). Impression: Single live advanced gestation in cephalic presentation. Biophysical profile score and amniotic fluid volume are normal.
== END ==
LOC: M WHC 08:28
PROVIDERS: ATTEND Advanced Practice Midwife
DX: O10.012 Pre-existing essential hypertension complicating pregnancy, second trimester (principal); O24.019 Pre-existing type 1 diabetes mellitus, in pregnancy, unspecified trimester

== ENCOUNTER → 2019-10-30 | Outpatient (CLI) | payer OTHER ==
--- NOTE | 2019-10-31 03:05 | REP ---
Clinical: well-being and history of maternal hypertension Comparison: 10/23/2019 . Findings: Examination demonstrates a single live intrauterine in cephalic presentation. motion is identified by technologist. Placenta is noted posterior and grade I I without evidence for placenta previa or abruption. Amniotic fluid volume is normal. Cervix measures 3.5 cm in length and appears closed. No evidence for nuchal cord. Gestational age by first US 33 weeks 1 day with HIEN 12/17/2019 . FHR equals 129 beats per minute. Biophysical profile score: 8/8 Amniotic fluid index: 11.7 cm Impression: Single live advanced gestation in cephalic presentation. Biophysical profile score and amniotic fluid volume are normal.
== END ==
LOC: M WHC 10:33
PROVIDERS: ATTEND Advanced Practice Midwife
DX: O10.913 Unspecified pre-existing hypertension complicating pregnancy, third trimester (principal); Z3A.33 33 weeks gestation of pregnancy

== ENCOUNTER → 2019-11-06 | Outpatient (CLI) | payer OTHER ==
--- NOTE | 2019-11-06 18:35 | REP ---
Clinical: Growth evaluation Comparison: 10/30/2019 . Findings: Examination demonstrates a single live intrauterine in cephalic presentation. motion is identified by technologist. Placenta is noted posterior and grade I I without evidence for placenta previa or abruption. Amniotic fluid volume is normal. Cervix measures 3.8 cm in length and appears closed. No evidence for nuchal cord. Gestational age by LMP 34 weeks 5 days with HIEN 12/13/2019 . Gestational age by current measurements 34 weeks 0 days with HIEN 12/18/2019 . FHR equals 156 beats per minute. Biophysical profile score: 8/ Amniotic fluid index: 11.9 cm Estimated weight 2395 grams ( 40th percentile). Impression: Single live advanced gestation in cephalic presentation demonstrating appropriate interval growth. Amniotic fluid volume and biophysical profile score are normal.
== END ==
LOC: M WHC 09:32
PROVIDERS: ATTEND Advanced Practice Midwife
DX: O10.013 Pre-existing essential hypertension complicating pregnancy, third trimester (principal); O24.419 Gestational diabetes mellitus in pregnancy, unspecified control; Z3A.34 34 weeks gestation of pregnancy

== ENCOUNTER → 2019-11-19 | Outpatient (CLI) | payer OTHER ==
[~2019-11-19] MED LIST changes: +DOCU100C16 PO; +IBUP80TA PO; +OXYC1TAB23 PO
== END ==
LOC: M LABSMTC 10:27
PROVIDERS: ATTEND Anesthesiology
DX: Z03.818 Encounter for observation for suspected exposure to other biological agents ruled out (principal); Z11.59 Encounter for screening for other viral diseases
CPT/HCPCS: C9803; U0003

== ENCOUNTER 2019-11-22 05:10 | Inpatient (IN) | payer OTHER ==
[2019-11-22] VITALS (7 sets, daily range): BP systolic 135–146; BP diastolic 59–81
[~2019-11-22] VITALS: Ht 170.2 cm; Wt 212.1 kg
[~2019-11-22 05:10] MED LIST changes: -DOCU100C16 PO; -IBUP80TA PO; -OXYC1TAB23 PO
[2019-11-22] MEDS ORDERED: BICITRA 30ML SOLN UDC PO ONE (06:15)
[2019-11-22] MEDS ORDERED: LR 1,000 ML IV ONE (06:15)
[2019-11-22] MEDS ORDERED: ceFAZolin SOD 1 GM in D5W MINI-BAG PLUS 50 ML IV ONE (06:15)
[2019-11-22] MEDS ORDERED: ceFAZolin SOD 2 GM in IV 1 EA IV ONE (06:15)
[2019-11-22] MEDS ORDERED: LR 1,000 ML IV SCH ×2 (06:15→10:45)
[2019-11-22 06:25] LABS: HEMATOCRIT 37.8 % (36.0-47.0); HEMOGLOBIN 12.2 g/dl (12.0-15.5); MEAN CORPUSCULAR HEMOGLOBIN 27.4 pg (27.0-33.0); MEAN CORPUSCULAR HGB CONC 32.3 g/dl (32.0-36.5); MEAN CORPUSCULAR VOLUME 84.9 fl (80.0-96.0); PLATELET COUNT, AUTOMATED 218 10^3/uL (150-450); RED BLOOD COUNT 4.45 10^6/uL (4.00-5.40)
[2019-11-22] MEDS ORDERED: ONDANSETRON 4MG/2ML VIAL IV PRN ×3 (08:32→10:45)
[2019-11-22] MEDS ORDERED: NALOXONE INJ 0.4MG/1ML VIAL (J2310 PER 1MG) IV PRN ×2 (08:32)
[2019-11-22] MEDS ORDERED: NALBUPHINE HCL 10 MG/ML AMP (J2300) IV PRN (08:32)
[2019-11-22] MEDS ORDERED: diphenhydrAMINE 50MG/ML VIAL (J1200) IV PRN (08:32)
[2019-11-22] MEDS ORDERED: METOCLOPRAMIDE INJ 10MG/2ML VIAL (J2765 PER 1) IV PRN ×2 (08:32→10:45)
[2019-11-22] MEDS ORDERED: ONDANSETRON 4MG/2ML VIAL As Ordered ONE (08:52)
[2019-11-22] MEDS ORDERED: dexameTHASONE 4 MG/ML 1ML VIAL (J1100 PER 1MG) As Ordered ONE (08:52)
[2019-11-22] MEDS ORDERED: LIDOCAINE PRES-FREE 2% 10ML AMP As Ordered ONE (08:52)
[2019-11-22] MEDS ORDERED: ePHEDrine SULFATE 25 MG/5 ML(5MG/ML) SYRINGE As Ordered ONE (08:52)
[2019-11-22] MEDS ORDERED: KETOROLAC 60MG 2ML VIAL As Ordered ONE ×2 (08:52→09:47)
[2019-11-22] MEDS ORDERED: MORPHINE PRES-FREE INJ 10 MG/10 ML VIAL (J2274) As Ordered ONE (08:52)
[2019-11-22] MEDS ORDERED: DESFLURANE 240 ML INHALANT As Ordered ONE (08:52)
[2019-11-22] MEDS ORDERED: OXYTOCIN INJ 10 UNITS/ML VIAL (J2590) As Ordered ONE (09:47)
[2019-11-22] MEDS ORDERED: PHENYLephrine 500MCG 5ML (100MCG/ML) SYRINGE As Ordered ONE (09:48)
[2019-11-22] MEDS ORDERED: OXYTOCIN DRIP 30 UNITS in IV 1 EA IV SCH (10:23)
[2019-11-22] MEDS ORDERED: RHOGAM 300 MCG (1500 IU) INJ (J2790) IM SCH (10:30)
[2019-11-22] MEDS ORDERED: DOCUSATE SODIUM 100MG CAPSULE PO PRN (10:30)
[2019-11-22] MEDS ORDERED: PROMETHAZINE 25 MG TAB PO PRN (10:30)
[2019-11-22] MEDS ORDERED: IBUPROFEN 600MG TAB PO PRN (10:30)
[2019-11-22] MEDS ORDERED: MEASLES,MUMPS,RUBELLA VACCINE INJ (MMR-II) (90707) SC SCH (10:30)
[2019-11-22] MEDS ORDERED: ACETAMINOPHEN TAB 650MG DOSE (2X325MG) PO PRN (10:30)
[2019-11-22] MEDS ORDERED: DIBUCAINE 1% OINTMENT 30GM TOP PRN (10:30)
[2019-11-22] MEDS ORDERED: ACETAMINOPHEN 500 MG TAB PO PRN (10:30)
[2019-11-22] MEDS ORDERED: MEPERIDINE INJ 25 MG/ML VIAL (J2175) IV PRN (10:45)
[2019-11-22] MEDS ORDERED: PERCOCET 5MG/325MG TAB PO PRN (10:45)
[2019-11-22] MEDS ORDERED: fentaNYL 100 MCG/2 ML INJECTION (J3010) IV PRN (10:45)
[2019-11-22] MEDS ORDERED: OXYTOCIN 30 UNITS IN 0.9% NaCl 500ML IV BAG (J2590) As Ordered ONE (11:18)
[2019-11-22 11:36] LABS: HEMATOCRIT 37.1 % (36.0-47.0); MEAN CORPUSCULAR HEMOGLOBIN 27.9 pg (27.0-33.0); MEAN CORPUSCULAR HGB CONC 32.3 g/dl (32.0-36.5); MEAN CORPUSCULAR VOLUME 86.3 fl (80.0-96.0); PLATELET COUNT, AUTOMATED 218 10^3/uL (150-450)
[2019-11-22 12:02] LABS: CREATININE FOR GFR 0.68 MG/DL (0.55-1.30); GLOMERULAR FILTRATION RATE > 60.0 (>60)
[2019-11-22] MEDS: LR 1,000 ML IV SCH ×3 (14:09→21:13)
[2019-11-22] MEDS: PRENATAL VITAMINS CHEWABLE TABLET PO SCH (16:39)
[2019-11-22] MEDS: metFORMIN (GLUCOPHAGE) 500MG TAB PO SCH (16:40)
[2019-11-22] MEDS: OMEPRAZOLE 20 MG CAP PO SCH (16:40)
[2019-11-22] MEDS: buPROPion **XL** TABLET 150MG (WELLBUTRIN XL) PO SCH (16:41)
[2019-11-22] MEDS: ENOXAPARIN 60MG/0.6ML SYRINGE (J1650 PER 10MG) SC SCH (18:04)
[2019-11-22] MEDS: LABETALOL 100MG TAB PO SCH (21:09)
[2019-11-22] MEDS: IBUPROFEN 800 MG TAB PO PRN (21:10)
[2019-11-23 02:00] VITALS: BP 133/58
[2019-11-23] MEDS: ENOXAPARIN 60MG/0.6ML SYRINGE (J1650 PER 10MG) SC SCH ×2 (06:02→18:20)
[2019-11-23 06:23] VITALS: BP 123/59
[2019-11-23] MEDS: metFORMIN (GLUCOPHAGE) 500MG TAB PO SCH (08:12)
[2019-11-23] MEDS: IBUPROFEN 800 MG TAB PO PRN ×2 (08:16→18:19)
[2019-11-23] MEDS: PRENATAL VITAMINS CHEWABLE TABLET PO SCH (09:26)
[2019-11-23] MEDS: OMEPRAZOLE 20 MG CAP PO SCH (09:26)
[2019-11-23] MEDS: buPROPion **XL** TABLET 150MG (WELLBUTRIN XL) PO SCH (09:26)
[2019-11-23] MEDS: LABETALOL 100MG TAB PO SCH ×2 (09:29→21:16)
[2019-11-23] MEDS ORDERED: DOCU100C16 PO (11:20)
[2019-11-23] MEDS ORDERED: IBUP80TA PO (11:20)
[2019-11-23] MEDS ORDERED: OXYC1TAB23 PO (11:20)
[2019-11-23 14:00] VITALS: BP 137/64
[2019-11-23] MEDS: PERCOCET 5MG/325MG TAB PO PRN ×2 (14:38→20:29)
[2019-11-23 18:32] VITALS: BP 136/60
[2019-11-23 22:00] VITALS: BP 138/63
[2019-11-24 02:00] VITALS: BP 139/67
[2019-11-24] MEDS: IBUPROFEN 800 MG TAB PO PRN (02:29)
[2019-11-24 06:00] VITALS: BP 135/61
[2019-11-24] MEDS: ENOXAPARIN 60MG/0.6ML SYRINGE (J1650 PER 10MG) SC SCH (06:06)
[2019-11-24 08:12] VITALS: BP 143/67
[2019-11-24] MEDS: LABETALOL 100MG TAB PO SCH (08:12)
[2019-11-24] MEDS: PRENATAL VITAMINS CHEWABLE TABLET PO SCH (08:12)
[2019-11-24] MEDS: OMEPRAZOLE 20 MG CAP PO SCH (08:13)
[2019-11-24] MEDS: metFORMIN (GLUCOPHAGE) 500MG TAB PO SCH (08:13)
[2019-11-24] MEDS: buPROPion **XL** TABLET 150MG (WELLBUTRIN XL) PO SCH (08:13)
[2019-11-24] MEDS: PERCOCET 5MG/325MG TAB PO PRN (08:32)
--- NOTE | 2019-11-25 20:30 | DSES ---
DATE OF ADMISSION: 11/22/2019 DATE OF DISCHARGE: 11/24/2019 HISTORY: 29-year-old at 37+ weeks gestation presents for repeat section. Indication for delivery less than 39 weeks, has chronic hypertension and gestational diabetes. is complicated by extreme obesity with a body mass index of 73. HOSPITAL COURSE: The patient was admitted on 11/22/2019. She underwent repeat section and tubal ligation for a 6 pound 15 ounce infant with no complications. Her postoperative course was unremarkable. She had adequate return of bladder and bowel function. Her postoperative hemoglobin was 12.0 g/dL. She was deemed stable for discharge on postoperative day #2. ADMISSION DIAGNOSES: 37 weeks, hypertension, diabetes, prior section. DISCHARGE DIAGNOSIS: Delivered. PROCEDURE: Repeat low transverse section and bilateral tubal ligation. DISPOSITION: Patient will followup with Dr. Kelley in 2 weeks. Instructions were reviewed.
== END 2019-11-24 13:05 | disposition home or self-care (01) | DRG 540 ==
LOC: M LDI 05:10 → M OBS 12:00
PROVIDERS: ADMIT Obstetrics & Gynecology; ATTEND Obstetrics & Gynecology
PROC: 0UB70ZZ Excision of Bilateral Fallopian Tubes, Open Approach (ICD-10-PCS; 2019-11-22)
PROC: 10D00Z1 Extraction of Products of Conception, Low, Open Approach (ICD-10-PCS; principal; 2019-11-22 07:30)
DX: O24.429 Gestational diabetes mellitus in childbirth, unspecified control (principal); O10.92 Unspecified pre-existing hypertension complicating childbirth; E66.01 Morbid (severe) obesity due to excess calories; Z68.45 Body mass index [BMI] 70 or greater, adult; O99.214 Obesity complicating childbirth; Z37.0 Single live birth; Z3A.37 37 weeks gestation of pregnancy; Z30.2 Encounter for sterilization

== ENCOUNTER 2020-07-19 14:41 | Emergency (ER) | payer OTHER ==
[~2020-07-19] VITALS: Ht 170.2 cm; Wt 216.2 kg
[~2020-07-19 14:41] MED LIST changes: +DOCU100C16 PO; +IBUP80TA PO; +OXYC1TAB23 PO
--- OUTSIDE RECORDS SUMMARY | 2020-07-19 14:50 | CCD | Continuity of Care Document ---
Author Author Gema OSPNIA Organization Unknown Address [address] [facility] [address] [place] [address] Phone [phone] Care Team Providers Care Venue Manager Name Role Phone JOSE OSPINA AUTM Social History Type Date Description Comments Sex Unknown Encounters Type Date Location Provider Dx Diagnosis Office Visit 06/30/2020 2:30p [facility] OSCAR Larios R05 Cough R09.81 Nasal congestion Z11.52 Encounter for screening for Covid-19 Assessments Date Code Description Provider 06/30/2020 R05 Cough OSCAR Smith 06/30/2020 R09.81 Nasal congestion OSCAR Patterson 06/30/2020 Z11.52 Encounter for screening for Covi d-19 OSCAR Mancia 03/20/2020 N39.0 Urinary tract infection, site no t specified OSCAR Mancia 03/20/2020 F41.9 Anxiety disorder, unspecified OSCAR Dailey 03/20/2020 E66.01 Morbid (severe) obesity due to e xcess calories OSCAR Mancia 02/15/2020 F41.9 Anxiety disorder, unspecified OSCAR Dailey 02/15/2020 N39.0 Urinary tract infection, site no t specified OSCAR Mancia 02/15/2020 G47.00 Insomnia, unspecified OCSAR Mancia 01/30/2020 N39.0 Urinary tract infection, site no t specified OSCAR Mancia 01/30/2020 F41.9 Anxiety disorder, unspecified Fr OSCAR Sorensen 01/30/2020 G47.00 Insomnia, unspecified OSCAR Mancia
--- OUTSIDE RECORDS SUMMARY | 2020-07-19 14:50 | CCD ---
Author Author [facility] Organization [facility] Address Unknown Phone Unavailable Care Team Providers Care Material Handler Floorperson Name Role Phone Nadia OSPINA Unavailable Unavailable Nadia OSPINA PA Unavailable Unavailable Nadia OSPINA PA Unavailable Unavailable Nadia OSPINA PA Unavailable Unavailable Nadia OSPINA PA Unavailable Unavailable Nadia OSPINA PA Unavailable Unavailable SPARKLETASHANKAR G JOSE PA Unavailable Unavailable Nadia OSPINA JOSE PA Unavailable Unavailable SPARKLETASHANKAR G JOSE PA Unavailable Unavailable ANAI G JOSE PA Unavailable Unavailable SPARKLETASHANKAR G JOSE PA Unavailable Unavailable TONTARSKI, G JOSE PA Unavailable Unavailable TONTARSKI, G JOSE PA Unavailable Unavailable TONTARSKI, G JOSE PA Unavailable Unavailable TONTARSKI, G JOSE PA Unavailable Unavailable TONTARSAMITA, G JOSE PA Unavailable Unavailable TONTARSAMITA, G JOSE PA Unavailable Unavailable TONTARSKI, G JOSE PA Unavailable Unavailable TONTARSKI, G JOSE PA Unavailable Unavailable TONTARSKI, G JOSE PA Unavailable Unavailable TONTARSAMITA, G JOSE PA Unavailable Unavailable TONTARSKI, G JOSE PA Unavailable Unavailable TONTARSAMITA, G JOSE PA Unavailable Unavailable TONTARSKI, G JOSE PA Unavailable Unavailable TONTARSAMITA, G JOSE PA Unavailable Unavailable TONTARSAMITA, G JOSE PA Unavailable Unavailable TONTARSAMITA, G JOSE PA Unavailable Unavailable TONTARSAMITA, G JOSE PA Unavailable Unavailable TONTARSKI, G JOSE PA Unavailable Unavailable TONTARSAMITA, G JOSE PA Unavailable Unavailable TONTARSAMITA, G JOSE PA Unavailable Unavailable TONTARSAMITA, G JOSE PA Unavailable Unavailable TONTARSAMITA, G JOSE PA Unavailable Unavailable TONTARSAMITA, G JOSE PA Unavailable Unavailable TONTARSAMITA, G JOSE PA Unavailable Unavailable TONTARSAMITA, G JOSE PA Unavailable Unavailable TONTARSAMITA, G JOSE PA Unavailable Unavailable TONTARSAMITA, G JOSE PA Unavailable Unavailable TONTARSKI, G JOSE PA Unavailable Unavailable TONTARSKI, G JOSE PA Unavailable Unavailable TONTARSAMITA, G JOSE PA Unavailable Unavailable TONTARSKI, G JOSE PA Unavailable Unavailable TONTARSKI, G JOSE PA Unavailable Unavailable TONTARSKI, G JOSE PA Unavailable Unavailable TONTARSKI, G JOSE PA Unavailable Unavailable TONTARSKI, G JOSE PA Unavailable Unavailable TONTARSAMITA, G JOSE PA Unavailable Unavailable TONTARSKI, G JOSE PA Unavailable Unavailable Maring, Renny PA Unavailable Unavailable Maring, Renny PA Unavailable Unavailable Maring, Renny PA Unavailable Unavailable Maring, Renny PA Unavailable Unavailable Maring, Renny PA Unavailable Unavailable Maring, Renny PA Unavailable Unavailable Maring, Renny PA Unavailable Unavailable Maring, Renny PA Unavailable Unavailable Maring, Renny PA Unavailable Unavailable Maring, Renny PA Unavailable Unavailable Maring, Renny PA Unavailable Unavailable Maring, Renny PA Unavailable Unavailable Maring, Renny PA Unavailable Unavailable Maring, Renny PA Unavailable Unavailable Re-disclosure Warning The records that you are about to access may contain information from federally-assisted alcohol or drug abuse programs. If such information is present, then the following federally mandated warning applies: This information has been disclosed to you from records protected by federal confidentiality rules (42 CFR part 2). The federal rules prohibit you from making any further disclosure of this information unless further disclosure is expressly permitted by the written consent of the person to whom it pertains or as otherwise permitted by 42 CFR part 2. A general authorization for the release of medical or other information is NOT sufficient for this purpose. The Federal rules restrict any use of the information to criminally investigate or prosecute any alcohol or drug abuse patient.The records that you are about to access may contain highly sensitive health information, the redisclosure of which is protected by Article 27-F of the [facility] Public Health law. If you continue you may have access to information: Regarding HIV / AIDS; Provided by facilities licensed or operated by the [facility] Office of Mental Health; or Provided by the [facility] Office for People With Developmental Disabilities. If such information is present, then the following [facility] mandated warning applies: This information has been disclosed to you from confidential records which are protected by state law. State law prohibits you from making any further disclosure of this information without the specific written consent of the person to whom it pertains, or as otherwise permitted by law. Any unauthorized further disclosure in violation of state law may result in a fine or residential sentence or both. A general authorization for the release of medical or other information is NOT sufficient authorization for further disc losure. Allergies and Adverse Reactions Type Description Substance Reaction Status Data Source(s ) Drug allergy Cipro Ciprofloxacin bowel issues Active eCW1 ( [facility]) Drug allergy Sulfacetamide Sodium Sulfacetamide Hives Active eCW1 ([facility]) Drug allergy sulfa drugs sulfa drugs hives Active eCW1 ([facility]) Drug allergy sulfa drugs sulfa drugs hives Active eCW1 ([facility]) Drug allergy sulfa drugs sulfa drugs hives Active eCW1 ([facility]) Family History Family Member Name Family Member Gender Family Member Status Date o f Status Description Data Source(s) Unknown Male Problem MEDENT ([facility]) Encounters Encounter Providers Location Date Indications Data Source(s ) O Attender: Renny MOORE 07/19/2020 01:08:05 PM EST DocuTap ([facility]) Office Visit Attender: JOSE norris 06/30/2020 01:30:00 PM EST MEDENT (Julián Gandara MD) [facility] [address] [place] [address] 01/17/2020 12:00:00 AM EDT eCW1 ([facility]) Unknown [address] [facility], [facility] [address] 12/26/2019 12:00:00 AM EDT eCW1 ([facility]) [facility] [address] [place] [address] 12/05/2019 12:00:00 AM EDT eCW1 ([facility]) [facility] [address] [place] [address] 11/22/2019 12:00:00 AM EDT eCW1 ([facility]) [facility] [address] [place] [address] 11/22/2019 12:00:00 AM EDT eCW1 ([facility]) [facility] [address] [place] [address] 11/14/2019 12:00:00 AM EDT eCW1 ([facility]) Unknown [address] [facility], [facility] [address] 11/12/2019 12:00:00 AM EDT eCW1 ([facility]) ([facility]) [facility] [address] [place] [address] 11/06/2019 12:00:00 AM EDT eCW1 ([facility]) [facility] [address] [place] [address] 11/01/2019 12:00:00 AM EDT eCW1 ([facility]) [facility] [address] [place] [id number] 10/31/2019 12:00:00 AM EDT eCW1 ([facility]) [facility] [address] 10/26/2019 12:00:00 AM EDT eCW1 ([facility]) [facility] [address] 10/19/2019 12:00:00 AM EDT eCW1 ([facility]) [facility] [address] [place] [address] 10/05/2019 12:00:00 AM EDT eCW1 ([facility]) [facility] [address] [place] [address] 10/05/2019 12:00:00 AM EDT eCW1 ([facility]) [facility] [address] [place] [id number] 09/24/2019 12:00:00 AM EDT eCW1 ([facility]) [facility] [address] [place] [address] 09/21/2019 12:00:00 AM EDT eCW1 ([facility]) [facility] [address] [place] [address] 09/11/2019 12:00:00 AM EDT eCW1 ([facility]) Outpatient 09/02/2019 10:23:00 AM EDT [facility] [address] [place] [address] 08/15/2019 12:00:00 AM EDT eCW1 ([facility]) [facility] [address] [place] [address] 08/14/2019 12:00:00 AM EDT eCW1 ([facility]) [facility] [address] [place] [address] 08/08/2019 12:00:00 AM EST eCW1 ([facility]) Outpatient 07/31/2019 10:42:00 AM EST [facility] Outpatient 07/31/2019 10:41:00 AM EST [facility] [address] 07/17/2019 12:00:00 AM EST eCW1 ([facility]) [facility] [address] [place] [address] 07/11/2019 12:00:00 AM EST eCW1 ([facility]) [facility] [address] [place] [address] 07/06/2019 12:00:00 AM EST eCW1 ([facility]) [facility] [address] [place] [address] 07/05/2019 12:00:00 AM EST eCW1 ([facility]) [facility] [address] [place] [id number] 06/26/2019 12:00:00 AM EST eCW1 ([facility]) [facility] [address] [place] [address] 06/22/2019 12:00:00 AM EST eCW1 ([facility]) [facility] [address] [place] [address] 06/19/2019 12:00:00 AM EST eCW1 ([facility]) Immunizations Vaccine Date Status Description Data Source(s) Tdap 10/05/2019 12:06:00 PM EDT completed e CW1 ([facility]) Tdap 10/05/2019 12:06:00 PM EDT completed e CW1 ([facility]) Medications Medication Brand Name Start Date Product Form Dose Route Admi nistrative Instructions Pharmacy Instructions Status Indications Reaction Description Data Source(s) 875-125 mg 07/01/2020 12:00:00 AM EST tablet 20 TAKE ONE TABLET BY MOUTH TWICE A DAY TAKE ONE TABLET BY MOUTH TWICE A DAY SOLD: 07/02/2020 [facility] 600 mg 05/10/2020 12:00:00 AM EST tablet 90 TAKE ONE TABLET BY MOUTH THREE TIMES A DAY NEEDED FOR TMJ TAKE ONE TABLET BY MOUTH THREE TIMES A D AY NEEDED FOR TMJ SOLD: 05/15/2020 [facility] 600 mg 05/10/2020 12:00:00 AM EST tablet 90 TAKE ONE TABLET BY MOUTH THREE TIMES A DAY NEEDED FOR TMJ TAKE ONE TABLET BY MOUTH THREE TIMES A D AY NEEDED FOR TMJ SOLD: 07/08/2020 [facility] 600 mg 05/10/2020 12:00:00 AM EST tablet 90 TAKE ONE TABLET BY MOUTH THREE TIMES A DAY NEEDED FOR TMJ TAKE ONE TABLET BY MOUTH THREE TIMES A D AY NEEDED FOR TMJ SOLD: 06/09/2020 [facility] 150 mg 05/10/2020 12:00:00 AM EST tablet 3 TAKE 1 TABLET BY MOUTH ONCE A WEEK TAKE 1 TABLET BY MOUTH ONCE A WEEK SOLD: 05/15/2020 [facility] 4 mg 03/27/2020 12:00:00 AM EDT tablet 12 TAKE ONE TABLET BY MOUTH EVERY 6 HOURS NEEDED TAKE ONE TABLET BY MOUTH EVERY 6 HOURS NEEDED SOLD: 03/31/2020 [facility] 100 mg 03/20/2020 12:00:00 AM EDT capsule 30 TAKE ONE CAPSULE BY MOUTH EVERY DAY TAKE ONE CAPSULE BY MOUTH EVERY DAY SOLD: 03/22/2020 [facility] 150 mg 03/20/2020 12:00:00 AM EDT tablet 3 TAKE 1 TABLET BY MOUTH ONCE A WEEK TAKE 1 TABLET BY MOUTH ONCE A WEEK SOLD: 03/22/2020 [facility] buspirone hydrochloride 10 MG Oral Tablet BUSPIRONE HCL 02/15/2020 12:00:00 AM EDT tablet 60 TAKE ONE TABLET BY MOUTH TWI CE A DAY TAKE ONE TABLET BY MOUTH TWICE A DAY SOLD: 02/20/2020 [facility] 50 mg 02/15/2020 12:00:00 AM EDT tablet 100 TAKE ONE TABLET BY MOUTH FOUR TIMES A DAY NEEDED FOR ANXIETY TAKE ONE TABLET BY MOUTH FOUR TIMES A DA Y NEEDED FOR ANXIETY SOLD: 02/20/2020 [facility] 300-30 mg 02/07/2020 12:00:00 AM EDT tablet 12 TAKE ONE TABLET BY MOUTH THREE TIMES A DAY NEEDED FOR PAIN MAXIMUM DAILY DOSE = THREE TABLETS TAKE ONE TABLET BY MOUTH THREE TIMES A DAY NEEDED FOR PAIN MAXIMUM DAILY DOSE = THREE TABLETS SOLD: 02/07/2020 [facility] 100 mg 01/30/2020 12:00:00 AM EDT capsule 37 TAKE ONE CAPSULE BY MOUTH TWICE A DAY FOR 7 DAYS THEN ONCE DAILY AFTER THAT TAKE ONE CAPSULE BY MOUTH TWICE A DAY FOR 7 DAYS THEN ONCE DAILY AFTER THAT SOLD: 01/30/2020 [facility] 200 mg 01/30/2020 12:00:00 AM EDT tablet 6 TAKE ONE TABLET BY MOUTH THREE TIMES A DAY TAKE ONE TABLET BY MOUTH THREE TIMES A DAY SOLD: 01/30/2020 [facility] 150 mg 01/30/2020 12:00:00 AM EDT tablet 4 TAKE 1 TABLET BY MOUTH ONCE WEEKLY TAKE 1 TABLET BY MOUTH ONCE WEEKLY SOLD: 01/30/2020 [facility] Nystatin 100 UNT/MG Topical Powder 100,000 unit/gram [place] N 01/17/2020 12:00:00 AM EDT powder 15 APPLY A SMALL AMOUNT TOPI PRO TWO TIMES A DAY APPLY A SMALL AMOUNT TOPICALLY TWO TIMES A DAY SOLD: 01/17/2020 [facility] 600 mg 01/16/2020 12:00:00 AM EDT tablet 90 TAKE ONE TABLET BY MOUTH THREE TIMES A DAY NEEDED FOR TMJ PAIN TAKE ONE TABLET BY MOUTH THREE TIMES A D AY NEEDED FOR TMJ PAIN SOLD: 03/31/2020 [facility] 600 mg 01/16/2020 12:00:00 AM EDT tablet 90 TAKE ONE TABLET BY MOUTH THREE TIMES A DAY NEEDED FOR TMJ PAIN TAKE ONE TABLET BY MOUTH THREE TIMES A D AY NEEDED FOR TMJ PAIN SOLD: 02/20/2020 [facility] 600 mg 01/16/2020 12:00:00 AM EDT tablet 90 TAKE ONE TABLET BY MOUTH THREE TIMES A DAY NEEDED FOR TMJ PAIN TAKE ONE TABLET BY MOUTH THREE TIMES A D AY NEEDED FOR TMJ PAIN SOLD: 01/17/2020 [facility] 875-125 mg 12/15/2019 12:00:00 AM EDT tablet 20 TAKE ONE TABLET BY MOUTH TWICE A DAY FOR 10 DAYS TAKE ONE TABLET BY MOUTH TWICE A DAY FOR 10 DAYS SOLD: 12/15/2019 [facility] 800 mg 11/23/2019 12:00:00 AM EDT tablet 30 TAKE ONE TABLET BY MOUTH EVERY 8 HOURS NEEDED FOR PAIN TAKE ONE TABLET BY MOUTH EVERY 8 HOURS A S NEEDED FOR PAIN SOLD: 11/24/2019 [facility] 5-325 mg 11/23/2019 12:00:00 AM EDT tablet 20 TAKE ONE TABLET BY MOUTH FOUR TIMES A DAY NEEDED FOR PAIN MAXIMUM DAILY DOSE = 4 TABLETS TAKE ONE TABLET BY MOUTH FOUR TIMES A DAY NEEDED FOR PAIN MAXIMUM DAILY DOSE = 4 TABLETS SOLD: 11/24/2019 [facility] 100 mg 11/23/2019 12:00:00 AM EDT capsule 14 TAKE ONE CAPSULE BY MOUTH AT BEDTIME NEEDED FOR CONSTIPATION TAKE ONE CAPSULE BY MOUTH AT BEDTIME NEEDED FOR CONSTIPATION SOLD: 11/24/2019 [facility] 100 mg 11/15/2019 12:00:00 AM EDT capsule 14 TAKE ONE CAPSULE BY MOUTH TWICE A DAY WITH FOOD UNTIL GONE TAKE ONE CAPSULE BY MOUTH TWICE A DAY WI TH FOOD UNTIL GONE SOLD: 11/15/2019 [facility] 300 mg 11/15/2019 12:00:00 AM EDT tablet extended release 24 hr 30 TAKE ONE TABLET BY MOUTH EVERY DAY TAKE ONE TABLET BY MOUTH EVERY DAY SOLD: 11/15/2019 [facility] 10 mg 11/15/2019 12:00:00 AM EDT tablet 30 TAKE ONE TABLET BY MOUTH EVERY DAY TAKE ONE TABLET BY MOUTH EVERY DAY SOLD: 11/24/2019 [facility] 4 mg 11/12/2019 12:00:00 AM EDT tablet 30 TAKE ONE TABLET BY MOUTH EVERY 6 HOURS TAKE ONE TABLET BY MOUTH EVERY 6 HOURS SOLD: 11/12/2019 [facility] ALCOHOL ANTISEPTIC PADS 11/02/2019 12:00:00 AM EDT pads, med icated 100 DIRECTED FOUR TIMES A DAY TOPICALLY DIRECTED FOUR TIMES A DAY TOPICALLY SOLD: 11/02/2019 [facility] 300 mg 10/27/2019 12:00:00 AM EDT tablet 60 TAKE ONE TABLET BY MOUTH TWICE A DAY TAKE ONE TABLET BY MOUTH TWICE A DAY SOLD: 10/31/2019 [facility] Labetalol hydrochloride 300 MG Oral Tablet Labetalol H Cl 300 MG Labetalol HCl 300 MG 10/26/2019 12:00:00 AM EDT 1.0 {tablet} activ e Labetalol HCl 300 MG eCW1 ([facility]) Labetalol hydrochloride 300 MG Oral Tablet Labetalol H Cl 300 MG Labetalol HCl 300 MG 10/26/2019 12:00:00 AM EDT 1.0 {tablet} activ e Labetalol HCl 300 MG eCW1 ([facility]) Labetalol hydrochloride 300 MG Oral Tablet Labetalol H Cl 300 MG Labetalol HCl 300 MG 10/26/2019 12:00:00 AM EDT 1.0 {tablet} activ e Labetalol HCl 300 MG eCW1 ([facility]) Labetalol hydrochloride 300 MG Oral Tablet Labetalol H Cl 300 MG Labetalol HCl 300 MG 10/26/2019 12:00:00 AM EDT active 1 tablet eCW1 ([facility]) Metformin hydrochloride 500 MG Oral Tablet Metformin H Cl 500 MG Metformin HCl 500 MG 10/19/2019 12:00:00 AM EDT 1.0 {tablet_with_a_meal} active Metformin HCl 500 MG eCW1 ([facility]) Metformin hydrochloride 500 MG Oral Tablet Metformin H Cl 500 MG Metformin HCl 500 MG 10/19/2019 12:00:00 AM EDT active 1 tablet with a meal eCW1 ([facility]) Metformin hydrochloride 500 MG Oral Tablet Metformin H Cl 500 MG Metformin HCl 500 MG 10/19/2019 12:00:00 AM EDT active 1 tablet with a meal eCW1 ([facility]) 500 mg 10/19/2019 12:00:00 AM EDT tablet 30 TAKE ONE TABLET BY MOUTH EVERY DAY WITH FOOD TAKE ONE TABLET BY MOUTH EVERY DAY WITH FOOD SOLD: 10/20/2019 [facility] Metformin hydrochloride 500 MG Oral Tablet Metformin H Cl 500 MG Metformin HCl 500 MG 10/19/2019 12:00:00 AM EDT 1.0 {tablet_with_a_meal} active Metformin HCl 500 MG eCW1 ([facility]) Metformin hydrochloride 500 MG Oral Tablet Metformin H Cl 500 MG Metformin HCl 500 MG 10/19/2019 12:00:00 AM EDT 1.0 {tablet_with_a_meal} active Metformin HCl 500 MG eCW1 ([facility]) 33 gauge 10/06/2019 12:00:00 AM EDT misc 100 ONE MISCELLANEOUS FOUR TIMES A DAY ONE MISCELLANEOUS FOUR TIMES A DAY SOLD: 11/02/2019 [facility] BLOOD SUGAR DIAGNOSTIC 10/06/2019 12:00:00 AM EDT strip 100 ONE MISCELLANEOUS FOUR TIMES A DAY ONE MISCELLANEOUS FOUR TIMES A DAY SOLD: 10/27/2019 [facility] 33 gauge 10/06/2019 12:00:00 AM EDT misc 100 ONE MISCELLANEOUS FOUR TIMES A DAY ONE MISCELLANEOUS FOUR TIMES A DAY SOLD: 10/07/2019 [facility] BLOOD SUGAR DIAGNOSTIC 10/06/2019 12:00:00 AM EDT strip 100 ONE MISCELLANEOUS FOUR TIMES A DAY ONE MISCELLANEOUS FOUR TIMES A DAY SOLD: 10/07/2019 [facility] BLOOD-GLUCOSE METER 10/06/2019 12:00:00 AM EDT misc 1 USE DIRECTED USE DIRECTED SOLD: 10/07/2019 [facility] ALCOHOL ANTISEPTIC PADS 10/06/2019 12:00:00 AM EDT pads, med icated 100 USE ONE PAD TOPICALLY FOUR TIMES A DAY USE ONE PAD TOPICALLY FOUR TIMES A DAY SOLD: 10/07/2019 [facility] Lancets - Lancets - 10/05/2019 12:00:00 AM EDT act christopher as directed eCW1 ([facility]) Test Strips - UNK 10/05/2019 12:00:00 AM EDT acti ve as directed eCW1 ([facility]) Isopropyl Alcohol 0.7 ML/ML Medicated Pad Alcohol Wipes 70 % Alcohol Wipes 70 % 10/05/2019 12:00:00 AM EDT active as directed O24.419 eCW1 ([facility]) Test Strips - UNK 10/05/2019 12:00:00 AM EDT acti ve Test Strips - eCW1 ([facility]) Lancets - Lancets - 10/05/2019 12:00:00 AM EDT act christopher as directed eCW1 ([facility]) Glucose Monitor - UNK 10/05/2019 12:00:00 AM EDT active as directed eCW1 ([facility]) Isopropyl Alcohol 0.7 ML/ML Medicated Pad Alcohol Wipes 70 % Alcohol Wipes 70 % 10/05/2019 12:00:00 AM EDT active Alcohol Wipes 70 % eCW1 ([facility]) Isopropyl Alcohol 0.7 ML/ML Medicated Pad Alcohol Wipes 70 % Alcohol Wipes 70 % 10/05/2019 12:00:00 AM EDT active as directed O24.419 eCW1 ([facility]) Lancets Misc - UNK 10/05/2019 12:00:00 AM EDT active Lancets Misc - eCW1 ([facility]) Lancets - Lancets - 10/05/2019 12:00:00 AM EDT act christopher Lancets - eCW1 ([facility]) Test Strips - UNK 10/05/2019 12:00:00 AM EDT acti ve as directed eCW1 ([facility]) Isopropyl Alcohol 0.7 ML/ML Medicated Pad Alcohol Wipes 70 % Alcohol Wipes 70 % 10/05/2019 12:00:00 AM EDT active Alcohol Wipes 70 % eCW1 ([facility]) Glucose Monitor - UNK 10/05/2019 12:00:00 AM EDT active Glucose Monitor - eCW1 ([facility]) Glucose Monitor - UNK 10/05/2019 12:00:00 AM EDT active as directed eCW1 ([facility]) Isopropyl Alcohol 0.7 ML/ML Medicated Pad Alcohol Wipes 70 % Alcohol Wipes 70 % 10/05/2019 12:00:00 AM EDT active as directed O24.419 eCW1 ([facility]) Isopropyl Alcohol 0.7 ML/ML Medicated Pad Alcohol Wipes 70 % Alcohol Wipes 70 % 10/05/2019 12:00:00 AM EDT active Alcohol Wipes 70 % eCW1 ([facility]) Test Strips - UNK 10/05/2019 12:00:00 AM EDT acti ve Test Strips - eCW1 ([facility]) Test Strips - UNK 10/05/2019 12:00:00 AM EDT acti ve Test Strips - eCW1 ([facility]) Lancets - Lancets - 10/05/2019 12:00:00 AM EDT act christopher as directed eCW1 ([facility]) Glucose Monitor - UNK 10/05/2019 12:00:00 AM EDT active as directed eCW1 ([facility]) Isopropyl Alcohol 0.7 ML/ML Medicated Pad Alcohol Wipes 70 % Alcohol Wipes 70 % 10/05/2019 12:00:00 AM EDT active as directed O24.419 eCW1 ([facility]) Glucose Monitor - K 10/05/2019 12:00:00 AM EDT active Glucose Monitor - eCW1 ([facility]) Glucose Monitor - K 10/05/2019 12:00:00 AM EDT active Glucose Monitor - eCW1 ([facility]) Test Strips - K 10/05/2019 12:00:00 AM EDT acti ve as directed eCW1 ([facility]) Lancets - Lancets - 10/05/2019 12:00:00 AM EDT act christopher Lancets - eCW1 ([facility]) 2 % 09/18/2019 12:00:00 AM EDT cream 21 INSERT 1 APPLICATORFUL VAGINALLY AT BEDTIME FOR 3 NIGHTS INSERT 1 APPLICATORFUL VAGINALLY AT BEDTIME FOR 3 NIGH TS SOLD: 09/19/2019 [facility] 500 mg 09/07/2019 12:00:00 AM EDT tablet 20 TAKE ONE TABLET BY MOUTH TWICE A DAY WITH FOOD UNTIL GONE TAKE ONE TABLET BY MOUTH TWICE A DAY WIT H FOOD UNTIL GONE SOLD: 09/08/2019 [facility] 300 mg 08/22/2019 12:00:00 AM EDT tablet extended release 24 hr 30 TAKE ONE TABLET BY MOUTH EVERY DAY TAKE ONE TABLET BY MOUTH EVERY DAY SOLD: 09/19/2019 [facility] 300 mg 08/22/2019 12:00:00 AM EDT tablet extended release 24 hr 30 TAKE ONE TABLET BY MOUTH EVERY DAY TAKE ONE TABLET BY MOUTH EVERY DAY SOLD: 08/24/2019 [facility] 300 mg 08/22/2019 12:00:00 AM EDT tablet extended release 24 hr 30 TAKE ONE TABLET BY MOUTH EVERY DAY TAKE ONE TABLET BY MOUTH EVERY DAY SOLD: 10/31/2019 [facility] 10 mg 08/21/2019 12:00:00 AM EDT tablet 30 TAKE ONE TABLET BY MOUTH EVERY DAY TAKE ONE TABLET BY MOUTH EVERY DAY SOLD: 10/27/2019 [facility] 10 mg 08/21/2019 12:00:00 AM EDT tablet 30 TAKE ONE TABLET BY MOUTH EVERY DAY TAKE ONE TABLET BY MOUTH EVERY DAY SOLD: 08/24/2019 [facility] 10 mg 08/21/2019 12:00:00 AM EDT tablet 30 TAKE ONE TABLET BY MOUTH EVERY DAY TAKE ONE TABLET BY MOUTH EVERY DAY SOLD: 09/19/2019 [facility] Omeprazole 20 MG Delayed Release Oral Capsule Omeprazole 20 MG 07/17/2019 12:00:00 AM EST active 1 capsul e 30 minutes before morning meal eCW1 ([facility]) Omeprazole 20 MG Delayed Release Oral Capsule Omeprazole 20 MG 07/17/2019 12:00:00 AM EST active 1 capsul e 30 minutes before morning meal eCW1 ([facility]) Omeprazole 20 MG Delayed Release Oral Capsule Omeprazole 20 MG 07/17/2019 12:00:00 AM EST active 1 capsul e 30 minutes before morning meal eCW1 ([facility]) Omeprazole 20 MG Delayed Release Oral Capsule Omeprazole 20 MG 07/17/2019 12:00:00 AM EST active Omeprazo le 20 MG eCW1 ([facility]) 4 mg 07/17/2019 12:00:00 AM EST tablet 30 TAKE ONE TABLET BY MOUTH EVERY 6 HOURS TAKE ONE TABLET BY MOUTH EVERY 6 HOURS SOLD: 09/09/2019 [facility] 4 mg 07/17/2019 12:00:00 AM EST tablet 30 TAKE ONE TABLET BY MOUTH EVERY 6 HOURS TAKE ONE TABLET BY MOUTH EVERY 6 HOURS SOLD: 07/18/2019 [facility] Omeprazole 20 MG Delayed Release Oral Capsule Omeprazole 20 MG 07/17/2019 12:00:00 AM EST active 1 capsul e 30 minutes before morning meal eCW1 ([facility]) Omeprazole 20 MG Delayed Release Oral Capsule Omeprazole 20 MG 07/17/2019 12:00:00 AM EST active Omeprazo le 20 MG eCW1 ([facility]) Omeprazole 20 MG Delayed Release Oral Capsule Omeprazole 20 MG 07/17/2019 12:00:00 AM EST active 1 capsul e 30 minutes before morning meal eCW1 ([facility]) 4 mg 07/17/2019 12:00:00 AM EST tablet 30 TAKE ONE TABLET BY MOUTH EVERY 6 HOURS TAKE ONE TABLET BY MOUTH EVERY 6 HOURS SOLD: 09/27/2019 [facility] Omeprazole 20 MG Delayed Release Oral Capsule Omeprazole 20 MG 07/17/2019 12:00:00 AM EST active Omeprazo le 20 MG eCW1 ([facility]) 20 mg 07/17/2019 12:00:00 AM EST capsule,delayed release (DR/EC) 30 TAKE ONE CAPSULE BY MOUTH EVERY DAY 30 MINUTES BEFORE MORNING MEAL TAKE ONE CAPSULE BY MOUTH EVERY DAY 30 MINUTES BEFORE MORNING MEAL SOLD: 07/18/2019 [facility] Omeprazole 20 MG Delayed Release Oral Capsule Omeprazole 20 MG 07/17/2019 12:00:00 AM EST active 1 capsul e 30 minutes before morning meal eCW1 ([facility]) 4 mg 07/17/2019 12:00:00 AM EST tablet 30 TAKE ONE TABLET BY MOUTH EVERY 6 HOURS TAKE ONE TABLET BY MOUTH EVERY 6 HOURS SOLD: 10/13/2019 [facility] 4 mg 07/17/2019 12:00:00 AM EST tablet 30 TAKE ONE TABLET BY MOUTH EVERY 6 HOURS TAKE ONE TABLET BY MOUTH EVERY 6 HOURS SOLD: 10/27/2019 [facility] 4 mg 07/17/2019 12:00:00 AM EST tablet 30 TAKE ONE TABLET BY MOUTH EVERY 6 HOURS TAKE ONE TABLET BY MOUTH EVERY 6 HOURS SOLD: 08/14/2019 [facility] 4 mg 07/17/2019 12:00:00 AM EST tablet 30 TAKE ONE TABLET BY MOUTH EVERY 6 HOURS TAKE ONE TABLET BY MOUTH EVERY 6 HOURS SOLD: 08/27/2019 [facility] Ondansetron 4 MG Oral Tablet [Zofran] Zofran 4 MG Zofran 4 M G 07/11/2019 12:00:00 AM EST 1.0 {tablet_as_needed} active Zofran 4 MG eCW1 ([facility]) Ondansetron 4 MG Oral Tablet [Zofran] Zofran 4 MG Zofran 4 M G 07/11/2019 12:00:00 AM EST active 1 tablet as needed eCW1 ([facility]) Ondansetron 4 MG Oral Tablet [Zofran] Zofran 4 MG Zofran 4 M G 07/11/2019 12:00:00 AM EST active 1 tablet as needed eCW1 ([facility]) Ondansetron 4 MG Oral Tablet [Zofran] Zofran 4 MG Zofran 4 M G 07/11/2019 12:00:00 AM EST active 1 tablet as needed eCW1 ([facility]) Ondansetron 4 MG Oral Tablet [Zofran] Zofran 4 MG Zofran 4 M G 07/11/2019 12:00:00 AM EST active 1 tablet as needed eCW1 ([facility]) Ondansetron 4 MG Oral Tablet [Zofran] Zofran 4 MG Zofran 4 M G 07/11/2019 12:00:00 AM EST 1.0 {tablet_as_needed} active Zofran 4 MG eCW1 ([facility]) Ondansetron 4 MG Oral Tablet [Zofran] Zofran 4 MG Zofran 4 M G 07/11/2019 12:00:00 AM EST active 1 tablet as needed eCW1 ([facility]) Ondansetron 4 MG Oral Tablet [Zofran] Zofran 4 MG Zofran 4 M G 07/11/2019 12:00:00 AM EST active 1 tablet as needed eCW1 ([facility]) 4 mg 07/11/2019 12:00:00 AM EST tablet 30 TAKE ONE TABLET BY MOUTH EVERY 6 HOURS TAKE ONE TABLET BY MOUTH EVERY 6 HOURS SOLD: 07/12/2019 [facility] Ondansetron 4 MG Oral Tablet [Zofran] Zofran 4 MG Zofran 4 M G 07/11/2019 12:00:00 AM EST 1.0 {tablet_as_needed} active Zofran 4 MG eCW1 ([facility]) Ondansetron 4 MG Oral Tablet [Zofran] Zofran 4 MG Zofran 4 M G 07/11/2019 12:00:00 AM EST active 1 tablet as needed eCW1 ([facility]) 300 mg 06/27/2019 12:00:00 AM EST capsule 28 TAKE ONE CAPSULE BY MOUTH TWICE A DAY UNTIL GONE TAKE ONE CAPSULE BY MOUTH TWICE A DAY UNTIL GONE SOLD: 06/27/2019 [facility] Labetalol hydrochloride 200 MG Oral Tablet Labetalol H Cl 200 MG Labetalol HCl 200 MG 06/26/2019 12:00:00 AM EST 1.0 {tablet} suspe nded Labetalol HCl 200 MG eCW1 ([facility]) Labetalol hydrochloride 200 MG Oral Tablet Labetalol H Cl 200 MG Labetalol HCl 200 MG 06/26/2019 12:00:00 AM EST active 1 tablet eCW1 ([facility]) Labetalol hydrochloride 200 MG Oral Tablet Labetalol H Cl 200 MG Labetalol HCl 200 MG 06/26/2019 12:00:00 AM EST active 1 tablet eCW1 ([facility]) 200 mg 06/26/2019 12:00:00 AM EST tablet 60 TAKE ONE TABLET BY MOUTH TWICE A DAY TAKE ONE TABLET BY MOUTH TWICE A DAY SOLD: 06/27/2019 [facility] Labetalol hydrochloride 200 MG Oral Tablet Labetalol H Cl 200 MG Labetalol HCl 200 MG 06/26/2019 12:00:00 AM EST 1.0 {tablet} suspe nded Labetalol HCl 200 MG eCW1 ([facility]) 200 mg 06/26/2019 12:00:00 AM EST tablet 60 TAKE ONE TABLET BY MOUTH TWICE A DAY TAKE ONE TABLET BY MOUTH TWICE A DAY SOLD: 08/14/2019 [facility] 200 mg 06/26/2019 12:00:00 AM EST tablet 60 TAKE ONE TABLET BY MOUTH TWICE A DAY TAKE ONE TABLET BY MOUTH TWICE A DAY SOLD: 10/13/2019 [facility] Labetalol hydrochloride 200 MG Oral Tablet Labetalol H Cl 200 MG Labetalol HCl 200 MG 06/26/2019 12:00:00 AM EST 1.0 {tablet} suspe nded Labetalol HCl 200 MG eCW1 ([facility]) Labetalol hydrochloride 200 MG Oral Tablet Labetalol H Cl 200 MG Labetalol HCl 200 MG 06/26/2019 12:00:00 AM EST active 1 tablet eCW1 ([facility]) Labetalol hydrochloride 200 MG Oral Tablet Labetalol H Cl 200 MG Labetalol HCl 200 MG 06/26/2019 12:00:00 AM EST active 1 tablet eCW1 ([facility]) Labetalol hydrochloride 200 MG Oral Tablet Labetalol H Cl 200 MG Labetalol HCl 200 MG 06/26/2019 12:00:00 AM EST active 1 tablet eCW1 ([facility]) 200 mg 06/26/2019 12:00:00 AM EST tablet 60 TAKE ONE TABLET BY MOUTH TWICE A DAY TAKE ONE TABLET BY MOUTH TWICE A DAY SOLD: 09/09/2019 [facility] Labetalol hydrochloride 200 MG Oral Tablet Labetalol H Cl 200 MG Labetalol HCl 200 MG 06/26/2019 12:00:00 AM EST active 1 tablet eCW1 ([facility]) Labetalol hydrochloride 200 MG Oral Tablet Labetalol H Cl 200 MG Labetalol HCl 200 MG 06/26/2019 12:00:00 AM EST active 1 tablet eCW1 ([facility]) Labetalol hydrochloride 200 MG Oral Tablet Labetalol H Cl 200 MG Labetalol HCl 200 MG 06/26/2019 12:00:00 AM EST active 1 tablet eCW1 ([facility]) 100 mg 06/19/2019 12:00:00 AM EST tablet 60 TAKE ONE TABLET BY MOUTH TWICE A DAY TAKE ONE TABLET BY MOUTH TWICE A DAY SOLD: 06/19/2019 [facility] Labetalol hydrochloride 100 MG Oral Tablet Labetalol H Cl 100 MG Labetalol HCl 100 MG 06/19/2019 12:00:00 AM EST active 1 tablet eCW1 ([facility]) Labetalol hydrochloride 100 MG Oral Tablet Labetalol H Cl 100 MG Labetalol HCl 100 MG 06/19/2019 12:00:00 AM EST active 1 tablet eCW1 ([facility]) 300 mg 06/09/2019 12:00:00 AM EST tablet extended release 24 hr 30 TAKE ONE TABLET BY MOUTH EVERY DAY TAKE ONE TABLET BY MOUTH EVERY DAY SOLD: 07/12/2019 [facility] 300 mg 06/09/2019 12:00:00 AM EST tablet extended release 24 hr 30 TAKE ONE TABLET BY MOUTH EVERY DAY TAKE ONE TABLET BY MOUTH EVERY DAY SOLD: 06/19/2019 [facility] 300 mg 06/09/2019 12:00:00 AM EST tablet extended release 24 hr 30 TAKE ONE TABLET BY MOUTH EVERY DAY TAKE ONE TABLET BY MOUTH EVERY DAY SOLD: 08/06/2019 [facility] 600 mg 02/13/2019 12:00:00 AM EDT tablet 90 TAKE ONE TABLET BY MOUTH THREE TIMES A DAY NEEDED FOR TMJ PAIN TAKE ONE TABLET BY MOUTH THREE TIMES A D AY NEEDED FOR TMJ PAIN SOLD: 08/14/2019 [facility] Insurance Providers Payer name Policy type / Coverage type Policy ID Covered alliance party ID Covered alliance party's relationship to rubalcava Policy Rubalcava Plan Information [facility] COMMUNITY PLAN [facility] [id number] SP [id number] [facility] Commercial Insurance Co. [id number] Self [id number] RPR- Needs Payer Match [id number] Self [id number] [facility] PLAN [facility] [id number] SP [id number] [facility] O [id number] S [id number] Managed Care - [facility] Community Plan P [id number] S [id number] Medicaid S [id number] S [id number] MEDICAID [id number] SP [id number] [facility] Communty Plan Medicaid [id number] Self [id number] [facility] COMMUNTY PLAN [id number] 18 [id number] [facility] COMM[facility] PLAN XIX [id number] 18 [id number] [facility] AMERICHOICE XIX -HMO [id number] 18 [id number] [facility] COMM[facility] PLAN XIX [id number] 18 [id number] [facility] Communty Plan Medicaid [id number] Self [id number] Managed Care - Community Plan [facility] P [id number] S [id number] Managed Care - Community Plan [facility] P [id number] S [id number] SELF PAY ONLY [id number] SP [id number] UNAVAILABLE UNAVAILA BLE SELF PAY ONLY [id number] SP [id number] [facility] COMM[facility] PLAN [facility] [id number] SP [id number] MEDICAID [id number] SP [id number] SELF PAY UNAVAILABLE SP UNAVAILA BLE [facility] COMM[facility] PLAN [facility] [id number] [id number] [facility] [id number] MO2 [id number] MEDICAID -O/P EMERGENCY ROOM [id number] 18 [id number] MEDICAID-O/P [id number] 18 [id number] MEDICAID S [id number] S [id number] [employer] PPO P [id number] S [id number] MEDICAID-I/P [id number] 18 [id number] [employer]-O/P [id number] 19 [id number] [employer] [id number] MO2 [id number] [employer] [id number] SP [id number] [employer] [place] PPO [id number] SP [id number] [id number] FA2 [id number] [employer] [id number] FA2 [id number] [employer] [id number] SP [id number] [employer] O [id number] P [id number] Problems, Conditions, and Diagnoses Code Display Name Description Problem Type Effective Dates Data Source(s) O99.213 Obesity complicating , third tr imester Obesity complicating in third trimester Problem 09/21/2019 12:00:00 AM EDT eCW1 ([facility]) O10.919 Benign essential hypertension in obstetr ic context Chronic hypertension affecting Problem 09/21/2019 12:00:00 AM EDT eCW1 ([facility]) O99.213 Obesity complicating , third tr imester Obesity complicating in third trimester Problem 09/21/2019 12:00:00 AM EDT eCW1 ([facility]) O10.919 Benign essential hypertension in obstetr ic context Chronic hypertension affecting Problem 09/21/2019 12:00:00 AM EDT eCW1 ([facility]) O16.2 Unspecified maternal hypertension, secon d trimester Hypertension affecting in second trimester Problem 07/06/2019 12:00:00 AM EST eC W1 ([facility]) O16.2 Unspecified maternal hypertension, secon d trimester Hypertension affecting in second trimester Problem 07/06/2019 12:00:00 AM EST eC W1 ([facility]) Z34.80 care Supervision of other normal P roblem 06/07/2019 12:00:00 AM EST eCW1 ([facility]) Z34.80 care Supervision of other normal P roblem 06/07/2019 12:00:00 AM EST eCW1 ([facility]) Surgeries/Procedures Procedure Description Date Indications Data Source(s) SUBSEQUENT CARE VISIT 10/26/2019 12:00:00 AM EDT eCW1 ([facility]) TDAP 0.5mL ([facility]) 10/05/2019 12:00:00 AM EDT eCW1 ([facility]) IMMUNIZATION ADMIN 10/05/2019 12:00:00 AM EDT eCW1 ([facility]) OB Visit 09/21/2019 12:00:00 AM EDT e CW1 ([facility]) Results ID Date Data Source [id number] 06/30/2020 12:00:00 AM EST [facility] Name Value Range Interpretation Code Description Data Brianna rce(s) Supporting Document(s) SARS-CoV2 Rapid Antigen Negative [facility] This lab was ordered by [facility] and reported by Julián Gandara MD. ID Date Data Source [id number] 11/19/2019 10:30:00 AM EDT [facility] Name Value Range Interpretation Code Description Data Brianna rce(s) Supporting Document(s) SARS CORONAVIRUS 2 RNA [facility] This lab was ordered by [facility] and reported by [facility]. ID Date Data Source AB SCREEN (INDIRECT NOAH)GEL Antibody Screen 06/19/2019 12 :00:00 AM EST eCW1 ([facility]) Name Value Range Interpretation Code Description Data Brianna rce(s) Supporting Document(s) NEGATIVE AB SCREEN (INDIRECT COOMB S)VIS eCW1 ([facility]) Procedure Social History Code Duration Value Status Description Data Source(s ) Smoking 11/06/2019 12:00:00 AM EDT Never Smoker completed Never S moker eCW1 ([facility]) Smoking 11/06/2019 12:00:00 AM EDT Never Smoker completed Never S moker eCW1 ([facility]) Smoking 11/06/2019 12:00:00 AM EDT Never Smoker completed Never S moker eCW1 ([facility]) Vital Signs ID Date Data Source UNK Name Value Range Interpretation Code Description Data Source(s) Diastolic blood pressure 86 mm[Hg] 86 mm[Hg] eCW1 ([facility]) Systolic blood pressure 132 mm[Hg] 132 mm[Hg] e CW1 ([facility]) Body mass index (BMI) [Ratio] 70.793 kg/m2 70.7 93 kg/m2 eCW1 ([facility]) Body height 67 [in_i] 67 [in_i] eCW1 ([facility]) Body weight 452 [lb_av] 452 [lb_av] eCW1 ([facility]) Diastolic blood pressure 90 mm[Hg] 90 mm[Hg] eCW1 ([facility]) Systolic blood pressure 156 mm[Hg] 156 mm[Hg] e CW1 ([facility]) Body mass index (BMI) [Ratio] 70.48 kg/m2 70.48 kg/m2 eCW1 ([facility]) Body height 67 [in_us] 67 [in_us] eCW1 ([facility]) Body weight Measured 450 [lb_av] 450 [lb_av] eC W1 ([facility]) Diastolic blood pressure 88 mm[Hg] 88 mm[Hg] eCW1 ([facility]) Systolic blood pressure 154 mm[Hg] 154 mm[Hg] e CW1 ([facility]) Body mass index (BMI) [Ratio] 72.046 kg/m2 72.0 46 kg/m2 eCW1 ([facility]) Body height 67 [in_us] 67 [in_us] eCW1 ([facility]) Body weight Measured 460 [lb_av] 460 [lb_av] eC W1 ([facility]) Diastolic blood pressure 88 mm[Hg] 88 mm[Hg] eCW1 ([facility]) Systolic blood pressure 148 mm[Hg] 148 mm[Hg] e CW1 ([facility]) Body mass index (BMI) [Ratio] 74.396 kg/m2 74.3 96 kg/m2 eCW1 ([facility]) Body height 67 [in_us] 67 [in_us] eCW1 ([facility]) Body weight Measured 475 [lb_av] 475 [lb_av] eC W1 ([facility]) Diastolic blood pressure 84 mm[Hg] 84 mm[Hg] eCW1 ([facility]) Systolic blood pressure 138 mm[Hg] 138 mm[Hg] e CW1 ([facility]) Body mass index (BMI) [Ratio] 74.865 kg/m2 74.8 65 kg/m2 eCW1 ([facility]) Body height 67 [in_us] 67 [in_us] eCW1 ([facility]) Body weight Measured 478 [lb_av] 478 [lb_av] eC W1 ([facility]) Diastolic blood pressure 84 mm[Hg] 84 mm[Hg] eCW1 ([facility]) Systolic blood pressure 140 mm[Hg] 140 mm[Hg] e CW1 ([facility]) Body mass index (BMI) [Ratio] 75.022 kg/m2 75.0 22 kg/m2 eCW1 ([facility]) Body height 67 [in_us] 67 [in_us] eCW1 ([facility]) Body weight Measured 479 [lb_av] 479 [lb_av] eC W1 ([facility]) Diastolic blood pressure 84 mm[Hg] 84 mm[Hg] eCW1 ([facility]) Systolic blood pressure 136 mm[Hg] 136 mm[Hg] e CW1 ([facility]) Body mass index (BMI) [Ratio] 74.865 kg/m2 74.8 65 kg/m2 eCW1 ([facility]) Body height 67 [in_us] 67 [in_us] eCW1 ([facility]) Body weight Measured 478 [lb_av] 478 [lb_av] eC W1 ([facility]) Diastolic blood pressure 86 mm[Hg] 86 mm[Hg] eCW1 ([facility]) Systolic blood pressure 144 mm[Hg] 144 mm[Hg] e CW1 ([facility]) Body mass index (BMI) [Ratio] 73.769 kg/m2 73.7 69 kg/m2 eCW1 ([facility]) Body height 67 [in_us] 67 [in_us] eCW1 ([facility]) Body weight Measured 471 [lb_av] 471 [lb_av] eC W1 ([facility]) Diastolic blood pressure 94 mm[Hg] 94 mm[Hg] eCW1 ([facility]) Systolic blood pressure 150 mm[Hg] 150 mm[Hg] e CW1 ([facility]) Body mass index (BMI) [Ratio] 29 kg/m2 29 kg/ m2 eCW1 ([facility]) Body height 67 [in_us] 67 [in_us] eCW1 ([facility]) Body weight Measured 466 [lb_av] 466 [lb_av] eC W1 ([facility]) Diastolic blood pressure 98 mm[Hg] 98 mm[Hg] eCW1 ([facility]) Systolic blood pressure 174 mm[Hg] 174 mm[Hg] e CW1 ([facility]) Body mass index (BMI) [Ratio] 72.986 kg/m2 72.9 86 kg/m2 eCW1 ([facility]) Body height 67 [in_us] 67 [in_us] eCW1 ([facility]) Body weight Measured 466 [lb_av] 466 [lb_av] eC W1 ([facility]) Patient Treatment Plan of Care Planned Activity Planned Date Details Description Data Source (s) Labetalol hydrochloride 300 MG Oral Tablet 10/26/2019 12:00:00 AM E DT eCW1 ([facility]) Metformin hydrochloride 500 MG Oral Tablet 10/19/2019 12:00:00 AM E DT eCW1 ([facility]) Isopropyl Alcohol 0.7 ML/ML Medicated Pad 10/05/2019 12:00:00 AM ED T eCW1 ([facility]) Isopropyl Alcohol 0.7 ML/ML Medicated Pad 10/05/2019 12:00:00 AM ED T eCW1 ([facility]) Test Strips - 10/05/2019 12:00:00 AM EDT eCW1 ([facility]) Lancets - 10/05/2019 12:00:00 AM EDT e CW1 ([facility]) Glucose Monitor - 10/05/2019 12:00:00 AM EDT eCW1 ([facility]) Omeprazole 20 MG Delayed Release Oral Capsule 07/17/2019 12:00:00 A M EST eCW1 ([facility]) Ondansetron 4 MG Oral Tablet [Zofran] 07/11/2019 12:00:00 AM EST eCW1 ([facility]) Ondansetron 4 MG Oral Tablet [Zofran] 07/11/2019 12:00:00 AM EST eCW1 ([facility]) Ondansetron 4 MG Oral Tablet [Zofran] 07/11/2019 12:00:00 AM EST eCW1 ([facility]) Ondansetron 4 MG Oral Tablet [Zofran] 07/11/2019 12:00:00 AM EST eCW1 ([facility]) Ondansetron 4 MG Oral Tablet [Zofran] 07/11/2019 12:00:00 AM EST eCW1 ([facility]) Labetalol hydrochloride 200 MG Oral Tablet 06/26/2019 12:00:[address] eCW1 ([facility]) Labetalol hydrochloride 100 MG Oral Tablet 06/19/2019 12:00:[address] eCW1 ([facility])
[2020-07-19 16:17] LABS: BASO # 0.1 10^3/uL (0.0-0.2); BASO % 0.3 % (0.0-1.0); EOS # 0.1 10^3/uL (0.0-0.5); EOS % 0.5 % (0.0-3.0); HEMATOCRIT 41.3 % (36.0-47.0); HEMOGLOBIN 13.4 g/dl (12.0-15.5); LYMPH # 2.6 10^3/uL (1.5-5.0); LYMPH % 17.8 % (24.0-44.0); MEAN CORPUSCULAR HEMOGLOBIN 26.5 pg (27.0-33.0); MEAN CORPUSCULAR HGB CONC 32.4 g/dl (32.0-36.5); MEAN CORPUSCULAR VOLUME 81.8 fl (80.0-96.0); MONO # 1.1 10^3/uL (0.0-0.8); MONO % 7.6 % (2.0-8.0); NEUTROPHILS # 10.6 10^3/uL (1.5-8.5); NEUTROPHILS % 73.4 % (36.0-66.0); PLATELET COUNT, AUTOMATED 303 10^3/uL (150-450); RED BLOOD COUNT 5.05 10^6/uL (4.00-5.40); WHITE BLOOD COUNT 14.4 10^3/uL (4.0-10.0)
--- OUTSIDE RECORDS SUMMARY | 2020-07-19 16:21 | CCD ---
Author Author [facility] Organization [facility] Address Unknown Phone Unavailable Care Team Providers [employer] Name Role Phone Nadia OSPINA Unavailable Unavailable [...] is protected by Article 27-F of the [facility] Public Health law. If you continue you may have access to information: Regarding HIV / AIDS; Provided by facilities licensed or operated by the [facility] Office of Mental Health; or Provided by the [facility] Office for People With Developmental Disabilities. If such information is present, then the following [facility] mandated warning applies: This information has been [...] law may result in a fine or assisted sentence or both. A general authorization for the release of medical or other information is NOT sufficient authorization for further disc losure. Allergies and Adverse Reactions Type Description Substance Reaction Status Data Source(s ) Drug allergy Cipro Ciprofloxacin bowel issues Active eCW1 ( [facility]) Drug allergy Sulfacetamide Sodium Sulfacetamide Hives Active eCW1 (Formerly [facility]) Drug allergy sulfa drugs sulfa drugs hives Active eCW1 (Formerly [facility], 1928[facility]1983) Drug allergy sulfa drugs sulfa drugs hives Active eCW1 (Formerly [facility], 1928[facility]1983) Drug allergy sulfa drugs sulfa drugs hives Active eCW1 (Formerly [facility], 1928–1983) Family History Family Member Name Family Member Gender Family Member Status Date o f Status Description Data Source(s) Unknown Male Problem MEDENT ([facility]) Encounters Encounter Providers Location Date Indications Data Source(s ) O Attender: Renny MOORE 07/19/19 01:08:05 PM EST - 07/19/2020 01:55:12 PM EST DocuTap ([facility] ) Office Visit Attender: JOSE MOORE [employer] 06/30/2020 01:30:00 PM EST MEDENT (Julián Gandara MD) [facility] [address] [place] [address] 01/17/2020 12:00:00 AM EDT eCW1 ([facility]) Unknown [address] [facility], [facility] [address] 12/26/2019 12:00:00 AM EDT eCW1 ([facility]) [facility] [address] [place] [address] 12/05/2019 12:00:00 AM EDT eCW1 ([facility]) [facility] [address] [place] [address] 11/22/2019 12:00:00 AM EDT eCW1 ([facility]) [facility] [address] [place] [address] 11/22/2019 12:00:00 AM EDT eCW1 ([facility]) [facility] [address] [place] [address] 11/14/2019 12:00:00 AM EDT eCW1 ([facility]) Unknown [address] [facility], [facility] [address] 11/12/2019 12:00:00 AM EDT eCW1 ([facility]) ([facility] EST[facility]) [facility] [address] [place] [address] 11/06/2019 12:00:00 AM EDT eCW1 ([facility]) [facility] [address] [place] [address] 11/01/2019 12:00:00 AM EDT eCW1 ([facility]) [facility] [address] [place] [address] 10/31/2019 12:00:00 AM EDT eCW1 ([facility]) [facility] [address] [place] [address] 10/26/2019 12:00:00 AM EDT eCW1 ([facility]) [facility] [address] [place] [address] 10/19/2019 12:00:00 AM EDT eCW1 ([facility]) [facility] [address] [place] [address] 10/05/2019 12:00:00 AM EDT eCW1 ([facility]) [facility] [address] [place] [address] 10/05/2019 12:00:00 AM EDT eCW1 ([facility]) [facility] [address] [place] [address] 09/24/2019 12:00:00 AM EDT eCW1 ([facility]) [facility] [address] [place] [address] 09/21/2019 12:00:00 AM EDT eCW1 ([facility]) [facility] [address] [place] [address] 09/11/2019 12:00:00 AM EDT eCW1 ([facility]) Outpatient 09/02/2019 10:23:00 AM EDT [facility] [address] [place] [address] 08/15/2019 12:00:00 AM EDT eCW1 ([facility]) [facility] [address] [place] [address] 08/14/2019 12:00:00 AM EDT eCW1 ([facility]) [facility] [address] [place] [address] 08/08/2019 12:00:00 AM EST eCW1 ([facility]) Outpatient 07/31/2019 10:42:00 AM EST [facility] Outpatient 07/31/2019 10:41:00 AM EST [facility] [address] [place] [address] 07/17/2019 12:00:00 AM EST eCW1 ([facility]) [facility] [address] [place] [address] 07/11/2019 12:00:00 AM EST eCW1 ([facility]) [facility] [address] [place] [address] 07/06/2019 12:00:00 AM EST eCW1 ([facility]) [facility] [address] [place] [address] 07/05/2019 12:00:00 AM EST eCW1 ([facility]) [facility] [address] [place] [address] 06/26/2019 12:00:00 AM EST eCW1 ([facility]) [facility] [address] [place] [address] 06/22/2019 12:00:00 AM EST eCW1 ([facility]) [facility] [address] [place] [address] 06/19/2019 12:00:00 AM EST eCW1 ([facility]) Immunizations Vaccine Date Status Description Data Source(s) Tdap 10/05/2019 12:06:00 PM EDT completed e CW1 ([facility]) Tdap 10/05/2019 12:06:00 PM EDT completed e CW1 ([facility]) Medications Medication Brand Name Start Date Product [...] AY NEEDED FOR TMJ PAIN SOLD: 03/31/2020 [facility] 600 mg 01/16/2020 12:00:00 AM EDT tablet 90 TAKE ONE TABLET BY MOUTH THREE TIMES A DAY NEEDED FOR TMJ PAIN TAKE ONE TABLET BY MOUTH THREE TIMES A D AY NEEDED FOR TMJ PAIN SOLD: 02/20/2020 [facility] 600 mg 01/16/2020 12:00:00 AM EDT tablet 90 TAKE ONE TABLET BY MOUTH THREE TIMES A DAY NEEDED FOR TMJ PAIN TAKE ONE TABLET BY MOUTH THREE TIMES A D AY NEEDED FOR TMJ PAIN SOLD: 01/17/2020 [facility] 875-125 mg 12/15/2019 12:00:00 AM EDT [...] DAILY DOSE = 4 TABLETS SOLD: 11/24/2019 [facility] 100 mg 11/23/2019 12:00:00 AM EDT [...] TABLET BY MOUTH EVERY DAY SOLD: 11/24/2019 [facility] 4 mg 11/12/2019 12:00:00 AM EDT [...] activ e Labetalol HCl 300 MG eCW1 ([facility]) Labetalol hydrochloride 300 MG Oral Tablet Labetalol H Cl 300 MG Labetalol HCl 300 MG 10/26/2019 12:00:00 AM EDT 1.0 {tablet} activ e Labetalol HCl 300 MG eCW1 ([facility]) Labetalol hydrochloride 300 MG Oral Tablet Labetalol H Cl 300 MG Labetalol HCl 300 MG 10/26/2019 12:00:00 AM EDT 1.0 {tablet} activ e Labetalol HCl 300 MG eCW1 ([facility]) Labetalol hydrochloride 300 MG Oral Tablet Labetalol H Cl 300 MG Labetalol HCl 300 MG 10/26/2019 12:00:00 AM EDT active 1 tablet eCW1 ([facility]) Metformin hydrochloride 500 MG Oral Tablet Metformin H Cl 500 MG Metformin HCl 500 MG 10/19/2019 12:00:00 AM EDT 1.0 {tablet_with_a_meal} active Metformin HCl 500 MG eCW1 ([facility]) Metformin hydrochloride 500 MG Oral Tablet Metformin H Cl 500 MG Metformin HCl 500 MG 10/19/2019 12:00:00 AM EDT active 1 tablet with a meal eCW1 ([facility]) Metformin hydrochloride 500 MG Oral Tablet Metformin H Cl 500 MG Metformin HCl 500 MG 10/19/2019 12:00:00 AM EDT active 1 tablet with a meal eCW1 ([facility]) 500 mg 10/19/2019 12:00:00 AM EDT tablet 30 TAKE ONE TABLET BY MOUTH EVERY DAY WITH FOOD TAKE ONE TABLET BY MOUTH EVERY DAY WITH FOOD SOLD: 10/20/2019 [facility] Metformin hydrochloride 500 MG Oral Tablet Metformin H Cl 500 MG Metformin HCl 500 MG 10/19/2019 12:00:00 AM EDT 1.0 {tablet_with_a_meal} active Metformin HCl 500 MG eCW1 ([facility]) Metformin hydrochloride 500 MG Oral Tablet Metformin H Cl 500 MG Metformin HCl 500 MG 10/19/2019 12:00:00 AM EDT 1.0 {tablet_with_a_meal} active Metformin HCl 500 MG eCW1 ([facility]) 33 gauge 10/06/2019 12:00:00 AM EDT misc [...] AM EDT act christopher as directed eCW1 ([facility]) Test Strips - UNK 10/05/2019 12:00:00 AM EDT acti ve as directed eCW1 ([facility]) Isopropyl Alcohol 0.7 ML/ML Medicated Pad Alcohol Wipes 70 % Alcohol Wipes 70 % 10/05/2019 12:00:00 AM EDT active as directed O24.419 eCW1 ([facility]) Test Strips - UNK 10/05/2019 12:00:00 AM EDT acti ve Test Strips - eCW1 ([facility]) Lancets - Lancets - 10/05/2019 12:00:00 AM EDT act christopher as directed eCW1 ([facility]) Glucose Monitor - UNK 10/05/2019 12:00:00 AM EDT active as directed eCW1 ([facility]) Isopropyl Alcohol 0.7 ML/ML Medicated Pad Alcohol Wipes 70 % Alcohol Wipes 70 % 10/05/2019 12:00:00 AM EDT active Alcohol Wipes 70 % eCW1 ([facility]) Isopropyl Alcohol 0.7 ML/ML Medicated Pad Alcohol Wipes 70 % Alcohol Wipes 70 % 10/05/2019 12:00:00 AM EDT active as directed O24.419 eCW1 ([facility]) Lancets Misc - UNK 10/05/2019 12:00:00 AM EDT active Lancets Misc - eCW1 ([facility]) Lancets - Lancets - 10/05/2019 12:00:00 AM EDT act christopher Lancets - eCW1 ([facility]) Test Strips - UNK 10/05/2019 12:00:00 AM EDT acti ve as directed eCW1 ([facility]) Isopropyl Alcohol 0.7 ML/ML Medicated Pad Alcohol Wipes 70 % Alcohol Wipes 70 % 10/05/2019 12:00:00 AM EDT active Alcohol Wipes 70 % eCW1 ([facility]) Glucose Monitor - UNK 10/05/2019 12:00:00 AM EDT active Glucose Monitor - eCW1 ([facility]) Glucose Monitor - UNK 10/05/2019 12:00:00 AM EDT active as directed eCW1 ([facility]) Isopropyl Alcohol 0.7 ML/ML Medicated Pad Alcohol Wipes 70 % Alcohol Wipes 70 % 10/05/2019 12:00:00 AM EDT active as directed O24.419 eCW1 ([facility]) Isopropyl Alcohol 0.7 ML/ML Medicated Pad Alcohol Wipes 70 % Alcohol Wipes 70 % 10/05/2019 12:00:00 AM EDT active Alcohol Wipes 70 % eCW1 ([facility]) Test Strips - UNK 10/05/2019 12:00:00 AM EDT acti ve Test Strips - eCW1 ([facility]) Test Strips - UNK 10/05/2019 12:00:00 AM EDT acti ve Test Strips - eCW1 ([facility]) Lancets - Lancets - 10/05/2019 12:00:00 AM EDT act christopher as directed eCW1 ([facility]) Glucose Monitor - UNK 10/05/2019 12:00:00 AM EDT active as directed eCW1 ([facility]) Isopropyl Alcohol 0.7 ML/ML Medicated Pad Alcohol Wipes 70 % Alcohol Wipes 70 % 10/05/2019 12:00:00 AM EDT active as directed O24.419 eCW1 ([facility]) Glucose Monitor - K 10/05/2019 12:00:00 AM EDT active Glucose Monitor - eCW1 ([facility]) Glucose Monitor - K 10/05/2019 12:00:00 AM EDT active Glucose Monitor - eCW1 ([facility]) Test Strips - K 10/05/2019 12:00:00 AM EDT acti ve as directed eCW1 ([facility]) Lancets - Lancets - 10/05/2019 12:00:00 AM EDT act christopher Lancets - eCW1 ([facility]) 2 % 09/18/2019 12:00:00 AM EDT cream [...] e 30 minutes before morning meal eCW1 ([facility]) Omeprazole 20 MG Delayed Release Oral Capsule Omeprazole 20 MG 07/17/2019 12:00:00 AM EST active 1 capsul e 30 minutes before morning meal eCW1 ([facility]) Omeprazole 20 MG Delayed Release Oral Capsule Omeprazole 20 MG 07/17/2019 12:00:00 AM EST active 1 capsul e 30 minutes before morning meal eCW1 ([facility]) Omeprazole 20 MG Delayed Release Oral Capsule Omeprazole 20 MG 07/17/2019 12:00:00 AM EST active Omeprazo le 20 MG eCW1 ([facility]) 4 mg 07/17/2019 12:00:00 AM EST tablet [...] e 30 minutes before morning meal eCW1 ([facility]) Omeprazole 20 MG Delayed Release Oral Capsule Omeprazole 20 MG 07/17/2019 12:00:00 AM EST active Omeprazo le 20 MG eCW1 ([facility]) Omeprazole 20 MG Delayed Release Oral Capsule Omeprazole 20 MG 07/17/2019 12:00:00 AM EST active 1 capsul e 30 minutes before morning meal eCW1 ([facility]) 4 mg 07/17/2019 12:00:00 AM EST tablet 30 TAKE ONE TABLET BY MOUTH EVERY 6 HOURS TAKE ONE TABLET BY MOUTH EVERY 6 HOURS SOLD: 09/27/2019 [facility] Omeprazole 20 MG Delayed Release Oral Capsule Omeprazole 20 MG 07/17/2019 12:00:00 AM EST active Omeprazo le 20 MG eCW1 ([facility]) 20 mg 07/17/2019 12:00:00 AM EST capsule,delayed release (DR/EC) 30 TAKE ONE CAPSULE BY MOUTH EVERY DAY 30 MINUTES BEFORE MORNING MEAL TAKE ONE CAPSULE BY MOUTH EVERY DAY 30 MINUTES BEFORE MORNING MEAL SOLD: 07/18/2019 [facility] Omeprazole 20 MG Delayed Release Oral Capsule Omeprazole 20 MG 07/17/2019 12:00:00 AM EST active 1 capsul e 30 minutes before morning meal [facility] ([facility]) 4 mg 07/17/2019 12:00:00 AM EST tablet [...] 1.0 {tablet_as_needed} active Zofran 4 MG eCW1 ([facility]) Ondansetron 4 MG Oral Tablet [Zofran] Zofran 4 MG Zofran 4 M G 07/11/2019 12:00:00 AM EST active 1 tablet as needed eCW1 ([facility]) Ondansetron 4 MG Oral Tablet [Zofran] Zofran 4 MG Zofran 4 M G 07/11/2019 12:00:00 AM EST active 1 tablet as needed eCW1 ([facility]) Ondansetron 4 MG Oral Tablet [Zofran] Zofran 4 MG Zofran 4 M G 07/11/2019 12:00:00 AM EST active 1 tablet as needed eCW1 ([facility]) Ondansetron 4 MG Oral Tablet [Zofran] Zofran 4 MG Zofran 4 M G 07/11/2019 12:00:00 AM EST active 1 tablet as needed eCW1 ([facility]) Ondansetron 4 MG Oral Tablet [Zofran] Zofran 4 MG Zofran 4 M G 07/11/2019 12:00:00 AM EST 1.0 {tablet_as_needed} active Zofran 4 MG eCW1 ([facility]) Ondansetron 4 MG Oral Tablet [Zofran] Zofran 4 MG Zofran 4 M G 07/11/2019 12:00:00 AM EST active 1 tablet as needed eCW1 ([facility]) Ondansetron 4 MG Oral Tablet [Zofran] Zofran 4 MG Zofran 4 M G 07/11/2019 12:00:00 AM EST active 1 tablet as needed eCW1 ([facility]) 4 mg 07/11/2019 12:00:00 AM EST tablet 30 TAKE ONE TABLET BY MOUTH EVERY 6 HOURS TAKE ONE TABLET BY MOUTH EVERY 6 HOURS SOLD: 07/12/2019 [facility] Ondansetron 4 MG Oral Tablet [Zofran] Zofran 4 MG Zofran 4 M G 07/11/2019 12:00:00 AM EST 1.0 {tablet_as_needed} active Zofran 4 MG eCW1 ([facility]) Ondansetron 4 MG Oral Tablet [Zofran] Zofran 4 MG Zofran 4 M G 07/11/2019 12:00:00 AM EST active 1 tablet as needed eCW1 ([facility]) 300 mg 06/27/2019 12:00:00 AM EST capsule 28 TAKE ONE CAPSULE BY MOUTH TWICE A DAY UNTIL GONE TAKE ONE CAPSULE BY MOUTH TWICE A DAY UNTIL GONE SOLD: 06/27/2019 [facility] Labetalol hydrochloride 200 MG Oral Tablet Labetalol H Cl 200 MG Labetalol HCl 200 MG 06/26/2019 12:00:00 AM EST 1.0 {tablet} suspe nded Labetalol HCl 200 MG eCW1 ([facility]) Labetalol hydrochloride 200 MG Oral Tablet Labetalol H Cl 200 MG Labetalol HCl 200 MG 06/26/2019 12:00:00 AM EST active 1 tablet eCW1 ([facility]) Labetalol hydrochloride 200 MG Oral Tablet Labetalol H Cl 200 MG Labetalol HCl 200 MG 06/26/2019 12:00:00 AM EST active 1 tablet eCW1 ([facility]) 200 mg 06/26/2019 12:00:00 AM EST tablet 60 TAKE ONE TABLET BY MOUTH TWICE A DAY TAKE ONE TABLET BY MOUTH TWICE A DAY SOLD: 06/27/2019 [facility] Labetalol hydrochloride 200 MG Oral Tablet Labetalol H Cl 200 MG Labetalol HCl 200 MG 06/26/2019 12:00:00 AM EST 1.0 {tablet} suspe nded Labetalol HCl 200 MG eCW1 ([facility]) 200 mg 06/26/2019 12:00:00 AM EST tablet [...] suspe nded Labetalol HCl 200 MG eCW1 ([facility]) Labetalol hydrochloride 200 MG Oral Tablet Labetalol H Cl 200 MG Labetalol HCl 200 MG 06/26/2019 12:00:00 AM EST active 1 tablet eCW1 ([facility]) Labetalol hydrochloride 200 MG Oral Tablet Labetalol H Cl 200 MG Labetalol HCl 200 MG 06/26/2019 12:00:00 AM EST active 1 tablet eCW1 ([facility]) Labetalol hydrochloride 200 MG Oral Tablet Labetalol H Cl 200 MG Labetalol HCl 200 MG 06/26/2019 12:00:00 AM EST active 1 tablet eCW1 ([facility]) 200 mg 06/26/2019 12:00:00 AM EST tablet 60 TAKE ONE TABLET BY MOUTH TWICE A DAY TAKE ONE TABLET BY MOUTH TWICE A DAY SOLD: 09/09/2019 [facility] Labetalol hydrochloride 200 MG Oral Tablet Labetalol H Cl 200 MG Labetalol HCl 200 MG 06/26/2019 12:00:00 AM EST active 1 tablet eCW1 ([facility]) Labetalol hydrochloride 200 MG Oral Tablet Labetalol H Cl 200 MG Labetalol HCl 200 MG 06/26/2019 12:00:00 AM EST active 1 tablet eCW1 ([facility]) Labetalol hydrochloride 200 MG Oral Tablet Labetalol H Cl 200 MG Labetalol HCl 200 MG 06/26/2019 12:00:00 AM EST active 1 tablet eCW1 ([facility]) 100 mg 06/19/2019 12:00:00 AM EST tablet 60 TAKE ONE TABLET BY MOUTH TWICE A DAY TAKE ONE TABLET BY MOUTH TWICE A DAY SOLD: 06/19/2019 [facility] Labetalol hydrochloride 100 MG Oral Tablet Labetalol H Cl 100 MG Labetalol HCl 100 MG 06/19/2019 12:00:00 AM EST active 1 tablet eCW1 ([facility]) Labetalol hydrochloride 100 MG Oral Tablet Labetalol H Cl 100 MG Labetalol HCl 100 MG 06/19/2019 12:00:00 AM EST active 1 tablet eCW1 ([facility]) 300 mg 06/09/2019 12:00:00 AM EST tablet [...] TABLET BY MOUTH EVERY DAY SOLD: 08/06/2019 [facility] 600 mg 02/13/2019 12:00:00 AM EDT tablet 90 TAKE ONE TABLET BY MOUTH THREE TIMES A DAY NEEDED FOR TMJ PAIN TAKE ONE TABLET BY MOUTH THREE TIMES A D AY NEEDED FOR TMJ PAIN SOLD: 08/14/2019 [facility] Insurance Providers Payer name Policy type / Coverage type Policy ID Covered green party ID Covered green party's relationship to mariscal Policy Mariscal Plan Information [facility] [id number] SP [id number] [facility] Commercial Insurance Co. [id number] Self [id number] RPR- Needs Payer Match [id number] Self [id number] [facility] [id number] SP [id number] [facility]) O [id number] S [id number] Managed Care - [facility] Community Plan P [id number] S [id number] Medicaid S [id number] S [id number] MEDICAID [id number] SP [id number] [facility] Communty Plan Medicaid [id number] Self [id number] [facility] COMMUNTY PLAN [id number] 18 [id number] [facility] COMMUNITY PLAN XIX [id number] 18 [id number] [facility] AMERICHOICE XIX -HMO [id number] 18 [id number] [facility] PLAN XIX [id number] 18 [id number] [facility] Communty Plan Medicaid [id number] Self [id number] Managed Care - Community Plan [facility] P [id number] S [id number] Managed Care - Community Plan [facility] P [id number] S [id number] SELF PAY ONLY [id number] SP [id number] UNAVAILABLE UNAVAILA BLE SELF PAY ONLY [id number] SP [id number] [facility] COMM[facility] [id number] SP [id number] MEDICAID [id number] SP [id number] SELF PAY UNAVAILABLE SP UNAVAILA BLE [facility] COMMUNITY [facility] [id number] [id number] MO2 [id number] MEDICAID -O/P EMERGENCY ROOM [id number] MEDICAID-O/P [id number] 18 [id number] MEDICAID S [id number] S [id number] [employer] PPO P [id number] S [id number] MEDICAID-I/P [id number] 18 [id number] [employer]-O/P [id number] 19 [id number] [employer] [id number] MO2 [id number] [employer] [id number] SP [id number] [employer] [place] PPO 302/[id number] SP [id number] [employer] [id number] FA2 [id number] [employer] [id number] FA2 [id number] [employer] [id number] SP [id number] [employer] O [id number] P [id number] Problems, Conditions, and Diagnoses Code Display Name Description Problem Type Effective Dates Data Source(s) O99.213 Obesity complicating , third tr imester Obesity complicating in third trimester Problem 09/21/2019 12:00:00 AM EDT eCW1 ([facility]) O10.919 Benign essential hypertension in obstetr ic context Chronic hypertension affecting Problem 09/21/2019 12:00:00 AM EDT eCW1 ([facility]) O99.213 Obesity complicating , third tr imester Obesity complicating in third trimester Problem 09/21/2019 12:00:00 AM EDT eCW1 ([facility]) O10.919 Benign essential hypertension in obstetr ic context Chronic hypertension affecting Problem 09/21/2019 12:00:00 AM EDT eCW1 ([facility]) O16.2 Unspecified maternal hypertension, secon d trimester Hypertension affecting in second trimester Problem 07/06/2019 12:00:00 AM EST eC W1 ([facility]) O16.2 Unspecified maternal hypertension, secon d trimester Hypertension affecting in second trimester Problem 07/06/2019 12:00:00 AM EST eC W1 ([facility]) Z34.80 care Supervision of other normal P roblem 06/07/2019 12:00:00 AM EST eCW1 ([facility]) Z34.80 care Supervision of other normal P roblem 06/07/2019 12:00:00 AM EST eCW1 ([facility]ly [facility]) Surgeries/Procedures Procedure Description Date Indications Data Source(s) SUBSEQUENT CARE VISIT 10/26/2019 12:00:00 AM EDT eCW1 ([facility]) TDAP 0.5mL (Boostrix) 10/05/2019 12:00:00 AM EDT eCW1 (Formerly [facility]) IMMUNIZATION ADMIN 10/05/2019 12:00:00 AM EDT eCW1 (Formerly [facility]) OB Visit 09/21/2019 12:00:00 AM EDT e CW1 (Formerly [facility]) Results ID Date Data Source [id number] 06/30/2020 12:00:00 AM EST [facility] Name Value Range Interpretation Code Description Data Rbianna rce(s) Supporting Document(s) SARS-CoV2 Rapid Antigen Negative [facility] This lab was ordered by [facility] and reported by Julián Gandara MD. ID Date Data Source [id number] 11/19/2019 10:30:00 AM EDT [facility] Name Value Range Interpretation Code Description Data Brianna rce(s) Supporting Document(s) SARS CORONAVIRUS 2 RNA [facility] This lab was ordered by [facility] and reported by [facility]. ID Date Data Source AB SCREEN (INDIRECT NOAH)GEL Antibody Screen 06/19/2019 12 :00:00 AM EST eCW1 (Formerly [facility]) Name Value Range Interpretation Code Description Data Brianna rce(s) Supporting Document(s) NEGATIVE AB SCREEN (INDIRECT COOMB S)VIS eCW1 (Formerly [facility]) Procedure Social History Code Duration Value Status Description Data Source(s ) Smoking 11/06/2019 12:00:00 AM EDT Never Smoker completed Never S moker eCW1 (Formerly [facility]) Smoking 11/06/2019 12:00:00 AM EDT Never Smoker completed Never S moker eCW1 (Formerly [facility]) Smoking 11/06/2019 12:00:00 AM EDT Never Smoker completed Never S moker eCW1 (Formerly [facility]) Vital Signs ID Date Data Source UNK Name Value Range Interpretation Code Description Data Source(s) Diastolic blood pressure 86 mm[Hg] 86 mm[Hg] eCW1 (Formerly [facility]) Systolic blood pressure 132 mm[Hg] 132 mm[Hg] e CW1 (Formerly [facility]) Body mass index (BMI) [Ratio] 70.793 kg/m2 70.7 93 kg/m2 eCW1 (Formerly [facility]) Body height 67 [in_i] 67 [in_i] eCW1 (Formerly [facility]) Body weight 452 [lb_av] 452 [lb_av] eCW1 ([facility]) Diastolic blood pressure 90 mm[Hg] 90 mm[Hg] eCW1 (Formerly [facility]) Systolic blood pressure 156 mm[Hg] 156 mm[Hg] e CW1 ([facility]ly [facility]) Body mass index (BMI) [Ratio] 70.48 kg/m2 70.48 kg/m2 eCW1 ([facility]ly [facility]) Body height 67 [in_us] 67 [in_us] eCW1 (Formerly [facility]) Body weight Measured 450 [lb_av] 450 [lb_av] eC W1 ([facility]ly [facility]) Diastolic blood pressure 88 mm[Hg] 88 mm[Hg] eCW1 ([facility]ly [facility]) Systolic blood pressure 154 mm[Hg] 154 mm[Hg] e CW1 ([facility]ly [facility]) Body mass index (BMI) [Ratio] 72.046 kg/m2 72.0 46 kg/m2 eCW1 ([facility]ly [facility]) Body height 67 [in_us] 67 [in_us] eCW1 ([facility]ly [facility]) Body weight Measured 460 [lb_av] 460 [lb_av] eC W1 ([facility]ly [facility]) Diastolic blood pressure 88 mm[Hg] 88 mm[Hg] eCW1 ([facility]ly [facility]) Systolic blood pressure 148 mm[Hg] 148 mm[Hg] e CW1 ([facility]ly [facility]) Body mass index (BMI) [Ratio] 74.396 kg/m2 74.3 96 kg/m2 eCW1 ([facility]ly [facility]) Body height 67 [in_us] 67 [in_us] eCW1 ([facility]ly [facility]) Body weight Measured 475 [lb_av] 475 [lb_av] eC W1 ([facility]ly [facility]) Diastolic blood pressure 84 mm[Hg] 84 mm[Hg] eCW1 ([facility]ly [facility]) Systolic blood pressure 138 mm[Hg] 138 mm[Hg] e CW1 ([facility]ly [facility]) Body mass index (BMI) [Ratio] 74.865 kg/m2 74.8 65 kg/m2 eCW1 ([facility]ly [facility]) Body height 67 [in_us] 67 [in_us] eCW1 ([facility]ly [facility]) Body weight Measured 478 [lb_av] 478 [lb_av] eC W1 ([facility]) Diastolic blood pressure 84 mm[Hg] 84 mm[Hg] eCW1 ([facility]) Systolic blood pressure 140 mm[Hg] 140 mm[Hg] e CW1 ([facility]) Body mass index (BMI) [Ratio] 75.022 kg/m2 75.0 22 kg/m2 eCW1 ([facility]) Body height 67 [in_us] 67 [in_us] eCW1 ([facility]ly [facility]) Body weight Measured 479 [lb_av] 479 [lb_av] eC W1 ([facility]ly [facility]) Diastolic blood pressure 84 mm[Hg] 84 mm[Hg] eCW1 ([facility]) Systolic blood pressure 136 mm[Hg] 136 mm[Hg] e CW1 ([facility]) Body mass index (BMI) [Ratio] 74.865 kg/m2 74.8 65 kg/m2 eCW1 ([facility]) Body height 67 [in_us] 67 [in_us] eCW1 ([facility]ly [facility]) Body weight Measured 478 [lb_av] 478 [lb_av] eC W1 ([facility]ly [facility]) Diastolic blood pressure 86 mm[Hg] 86 mm[Hg] eCW1 ([facility]ly [facility]) Systolic blood pressure 144 mm[Hg] 144 mm[Hg] e CW1 ([facility]ly [facility]) Body mass index (BMI) [Ratio] 73.769 kg/m2 73.7 69 kg/m2 eCW1 ([facility]ly [facility]) Body height 67 [in_us] 67 [in_us] eCW1 ([facility]ly [facility]) Body weight Measured 471 [lb_av] 471 [lb_av] eC W1 ([facility]ly [facility]) Diastolic blood pressure 94 mm[Hg] 94 mm[Hg] eCW1 ([facility]) Systolic blood pressure 150 mm[Hg] 150 mm[Hg] e CW1 ([facility]) Body mass index (BMI) [Ratio] 29 kg/m2 29 kg/ m2 eCW1 ([facility]) Body height 67 [in_us] 67 [in_us] eCW1 ([facility]ly [facility]) Body weight Measured 466 [lb_av] 466 [lb_av] eC W1 ([facility]) Diastolic blood pressure 98 mm[Hg] 98 mm[Hg] eCW1 ([facility]) Systolic blood pressure 174 mm[Hg] 174 mm[Hg] e CW1 ([facility]) Body mass index (BMI) [Ratio] 72.986 kg/m2 72.9 86 kg/m2 eCW1 ([facility]) Body height 67 [in_us] 67 [in_us] eCW1 ([facility]ly [facility]) Body weight Measured 466 [lb_av] 466 [lb_av] eC W1 (Formerly [facility]) Patient Treatment Plan of Care Planned Activity Planned Date Details Description Data Source (s) Labetalol hydrochloride 300 MG Oral Tablet 10/26/2019 12:00:00 AM E DT eCW1 ([facility]ly [facility]) Metformin hydrochloride 500 MG Oral Tablet 10/19/2019 12:00:00 AM E DT eCW1 (Formerly [facility]) Isopropyl Alcohol 0.7 ML/ML Medicated Pad 10/05/2019 12:00:00 AM ED T eCW1 (Formerly [facility]) Isopropyl Alcohol 0.7 ML/ML Medicated Pad 10/05/2019 12:00:00 AM ED T eCW1 (Formerly [facility]) Test Strips - 10/05/2019 12:00:00 AM EDT eCW1 (Formerly [facility]) Lancets - 10/05/2019 12:00:00 AM EDT e CW1 ([facility]ly [facility]) Glucose Monitor - 10/05/2019 12:00:00 AM EDT eCW1 (Formerly [facility]) Omeprazole 20 MG Delayed Release Oral Capsule 07/17/2019 12:00:00 A M EST eCW1 (Formerly [facility]) Ondansetron 4 MG Oral Tablet [Zofran] 07/11/2019 12:00:00 AM EST eCW1 (Formerly [facility]) Ondansetron 4 MG Oral Tablet [Zofran] 07/11/2019 12:00:00 AM EST eCW1 (Former[facility]) Ondansetron 4 MG Oral Tablet [Zofran] 07/11/2019 12:00:00 AM EST eCW1 ([facility]) Ondansetron 4 MG Oral Tablet [Zofran] 07/11/2019 12:00:00 AM EST eCW1 ([facility]) Ondansetron 4 MG Oral Tablet [Zofran] 07/11/2019 12:00:00 AM EST eCW1 (Formerly [facility]) Labetalol hydrochloride 200 MG Oral Tablet 06/26/2019 12:00:[address] eCW1 (Formerly [facility]) Labetalol hydrochloride 100 MG Oral Tablet 06/19/2019 12:00:[address] eCW1 (Formerly [facility])
[2020-07-19 16:28] LABS: PARTIAL THROMBOPLASTIN TIME 29.3 SECONDS (24.2-38.5); PROTHROMBIN TIME 13.4 SECONDS (12.5-14.3)
[2020-07-19 16:48] LABS: ALBUMIN 3.6 GM/DL (3.2-5.2); ALT/SGPT 23 U/L (12-78); BILIRUBIN,DIRECT 0.2 MG/DL (0.0-0.2); BILIRUBIN,TOTAL 0.5 MG/DL (0.2-1.0); CK-MB VALUE MASS < 1.0 NG/ML (<3.6); CPK CREATINE PHOSPHOKINASE 78 U/L (26-192); FREE T4 1.01 NG/DL (0.76-1.46); LIPASE 47 U/L (73-393); MB/CK RELATIVE INDEX 1.28 (< OR =4); TOTAL PROTEIN 7.5 GM/DL (6.4-8.2); TROPONIN I < 0.02 NG/ML (< 0.10)
[2020-07-19] MEDS ORDERED: ISOVUE-370 76% 100ML VIAL As Ordered ONE (16:54)
--- NOTE | 2020-07-19 17:06 | REP ---
INDICATION: CHEST PAIN. COMPARISON: Comparison chest x-ray March 14, 2017. TECHNIQUE: Portable upright AP chest radiograph. FINDINGS: Monitoring electrodes are seen. The lungs are symmetrically aerated. Pleural angles are sharp. No infiltrate is seen. Heart does not appear to be enlarged. Pulmonary vasculature is not increased.. IMPRESSION: No active disease. <Electronically signed by Lloyd Lutz > 07/19/20 1421
--- NOTE | 2020-07-19 18:02 | REPVR ---
PROCEDURE INFORMATION: Exam: CT Angiography Chest With Contrast Exam date and time: 07/19/2020 5:00 PM Age: 29 years old Clinical indication: Shortness of breath; Chest pain; Type not specified; Additional info: Chest pain/sob TECHNIQUE: Imaging protocol: Computed tomographic angiography of the chest with contrast. 3D rendering (Not supervised by radiologist): MIP and/or 3D reconstructed images were created by the technologist. Radiation optimization: All CT scans at this facility use at least one of these dose optimization techniques: automated exposure control; mA and/or kV adjustment per patient size (includes targeted exams where dose is matched to clinical indication); or iterative reconstruction. Contrast material: ISOVUE 370; Contrast volume: 100 ml; Contrast route: INTRAVENOUS (IV); COMPARISON: CT ANGIO CHEST 11/09/2018 11:22 PM FINDINGS: Pulmonary arteries: Normal. No pulmonary emboli. Aorta: Unremarkable. No aortic aneurysm. No aortic dissection. Lungs: Unremarkable. No consolidation. No masses. Pleural spaces: Unremarkable. No pneumothorax. No pleural effusion. Heart: Unremarkable. No cardiomegaly. No pericardial effusion. Lymph nodes: Unremarkable. No enlarged lymph nodes. Bones/joints: Unremarkable. No acute fracture. Soft tissues: Unremarkable. IMPRESSION: No acute findings. Electronically signed by: Eric Carvalho On 07/19/2020 18:02:51 PM
[2020-07-19] MEDS ORDERED: METOPROLOL TART 25 MG TABLET PO ONE (19:00)
[2020-07-19 19:07] VITALS: BP 150/88
[2020-07-19] MEDS ORDERED: ACETAMINOPHEN 325 MG TAB PO ONE (19:30)
[2020-07-19] MEDS ORDERED: METO1TAB87 PO (20:24)
[2020-07-19 20:46] VITALS: BP 172/74
--- NOTE | 2020-07-20 20:39 | ECGEPIP ---
[facility] - ED Test Date: 2020-07-19 Pat Name: JARED CASTELLON Department: Room: - Gender: Female Sole Stainer: PATRICIA : 1990 Requested By: Jefry Norton Order Number: [id number] Reading MD: Rianna Garcia Measurements Intervals Turney Rate: 139 P: 38 SD: 131 QRS: 38 QRSD: 101 T: 7 QT: 312 QTc: 475 Interpretive Statements SINUS TACHYCARDIA NONSPECIFIC ST & T-WAVE ABNORMALITY ABNORMAL RHYTHM ECG INCREASED RATE 11/09/18 Electronically Signed on 07-20-2020 20:39:40 EST by Rianna Garcia
== END 2020-07-19 20:59 | disposition home or self-care (01) ==
LOC: M ED 14:41
DX: R07.89 Other chest pain (principal); R00.0 Tachycardia, unspecified; R94.31 Abnormal electrocardiogram [ECG] [EKG]; I10 Essential (primary) hypertension; Z79.899 Other long term (current) drug therapy; Z88.2 Allergy status to sulfonamides
CPT/HCPCS: 71045; 71275; 80047; 80076; 82550; 82553; 83690; 84439; 84443; 84702; 85025; 85610; 85730; 93005; 93041; 94760; 99285; Q9967

== ENCOUNTER → 2021-02-16 | Outpatient (REF) | payer OTHER ==
[~2021-02-16] MED LIST changes: -LABE300T19 PO; +LABE300T3 PO; +METO1TAB87 PO
[2021-02-16 21:40] LABS: APPEARANCE, URINE HAZY (CLEAR); BACTERIA, URINE AUTO NEGATIVE (NEGATIVE); BILIRUBIN, URINE AUTO NEGATIVE (NEGATIVE); BLOOD, URINE BLOOD 2+ (NEGATIVE); COLOR, URINE YELLOW (YELLOW); GLUCOSE, URINE (UA) AUTO NEGATIVE (NEGATIVE); KETONE, URINE AUTO NEGATIVE (NEGATIVE); LEUKOCYTE ESTERASE, URINE AUTO 1+ (NEGATIVE); MUCUS, URINE SMALL (NEGATIVE); NITRITE, URINE AUTO NEGATIVE (NEGATIVE); PROTEIN, URINE AUTO NEGATIVE (NEGATIVE); RBC, URINE AUTO 4 /HPF (0-3); SPECIFIC GRAVITY URINE AUTO 1.015 (1.002-1.035); SQUAMOUS EPITHELIAL CELL UR AU 3 /HPF (0-6); UROBILINOGEN, URINE AUTO 0.2 mg/dL (0.0-2.0); WBC, URINE AUTO 7 /HPF (0-3)
== END ==
LOC: M LAB REF 21:17
PROVIDERS: ATTEND Physician Assistant
DX: R30.0 Dysuria (principal)

== ENCOUNTER → 2021-03-28 | Outpatient (CLI) | payer OTHER ==
[2021-03-28 09:56] LABS: BASO % 0.6 % (0.0-1.0); EOS # 0.2 10^3/uL (0.0-0.5); EOS % 2.2 % (0.0-3.0); HEMATOCRIT 41.6 % (36.0-47.0); HEMOGLOBIN 13.5 g/dl (12.0-15.5); LYMPH # 1.8 10^3/uL (1.5-5.0); MEAN CORPUSCULAR HEMOGLOBIN 26.9 pg (27.0-33.0); MEAN CORPUSCULAR HGB CONC 32.5 g/dl (32.0-36.5); MEAN CORPUSCULAR VOLUME 82.9 fl (80.0-96.0); MONO # 0.8 10^3/uL (0.0-0.8); MONO % 12.4 % (2.0-8.0); NEUTROPHILS % 58.5 % (36.0-66.0); PLATELET COUNT, AUTOMATED 237 10^3/uL (150-450); RED BLOOD COUNT 5.02 10^6/uL (4.00-5.40); WHITE BLOOD COUNT 6.8 10^3/uL (4.0-10.0)
[2021-03-28 10:03] LABS: HEMATOCRIT 41.6 % (36.0-47.0)
[2021-03-28 10:30] LABS: ALBUMIN 3.4 GM/DL (3.2-5.2); ALT/SGPT 29 U/L (12-78); BILIRUBIN,TOTAL 0.7 MG/DL (0.2-1.0); BLOOD UREA NITROGEN 4 MG/DL (7-18); CALCIUM LEVEL 8.6 MG/DL (8.5-10.1); CARBON DIOXIDE LEVEL 25 MEQ/L (21-32); CHLORIDE LEVEL 103 MEQ/L (98-107); FERRITIN 115 NG/ML (8-252); GLOMERULAR FILTRATION RATE > 60.0 (>60); GLUCOSE, FASTING 74 MG/DL (70-100); IRON (FE) 68 UG/DL (50-170); MAGNESIUM LEVEL 1.6 MG/DL (1.8-2.4); PERCENT SATURATION 27.3 % (13.2-45.0); PHOSPHORUS LEVEL 3.4 MG/DL (2.5-4.9); POTASSIUM SERUM 3.7 MEQ/L (3.5-5.1); SODIUM LEVEL 140 MEQ/L (136-145); TOTAL IRON BINDING CAPACITY 249 UG/DL (250-450); TOTAL PROTEIN 6.7 GM/DL (6.4-8.2)
[2021-03-28 10:40] LABS: HEMOGLOBIN A1c 4.8 %
[2021-03-30 09:59] LABS: TOTAL 25(OH) VITAMIN D 40.2 NG/ML (30.0-100.0)
[2021-03-30 10:37] LABS: VITAMIN B12 LEVEL > 2000 PG/ML (247-911)
== END ==
LOC: M LAB 08:39
PROVIDERS: ATTEND Surgery
DX: K91.2 Postsurgical malabsorption, not elsewhere classified (principal); E55.9 Vitamin D deficiency, unspecified; Z98.84 Bariatric surgery status

== ENCOUNTER → 2021-03-28 | Outpatient (CLI) | payer OTHER ==
[2021-03-28 10:40] LABS: HEMOGLOBIN A1c 4.7 %
[2021-03-28 10:54] LABS: FREE T4 1.09 NG/DL (0.76-1.46); RHEUMATOID FACTOR QUANT < 10.0 IU/ML (<15.0)
[2021-03-30 10:04] LABS: FOLATE 8.5 NG/ML (>5.4)
[2021-03-30 10:36] LABS: VITAMIN B12 LEVEL 1711 PG/ML (247-911)
== END ==
LOC: M LAB 08:37
PROVIDERS: ATTEND Psychiatry & Neurology Neurology
DX: E07.9 Disorder of thyroid, unspecified (principal); E11.40 Type 2 diabetes mellitus with diabetic neuropathy, unspecified

== ENCOUNTER → 2021-06-23 | Outpatient (CLI) | payer OTHER ==
[~2021-06-23] MED LIST changes: +OMEP-173 PO; -OMEP-218 PO
== END ==
LOC: M PLAIMG 14:25
PROVIDERS: ATTEND Psychiatry & Neurology Neurology
DX: G37.3 Acute transverse myelitis in demyelinating disease of central nervous system (principal); R20.2 Paresthesia of skin; M51.24 Other intervertebral disc displacement, thoracic region; M51.26 Other intervertebral disc displacement, lumbar region; M51.27 Other intervertebral disc displacement, lumbosacral region; M47.816 Spondylosis without myelopathy or radiculopathy, lumbar region; D18.09 Hemangioma of other sites

== ENCOUNTER → 2022-09-28 | Outpatient (REF) | payer OTHER ==
[2022-09-28 22:01] LABS: APPEARANCE, URINE HAZY (CLEAR); BACTERIA, URINE AUTO NEGATIVE (NEGATIVE); BILIRUBIN, URINE AUTO NEGATIVE (NEGATIVE); BLOOD, URINE BLOOD NEGATIVE (NEGATIVE); COLOR, URINE YELLOW (YELLOW); GLUCOSE, URINE (UA) AUTO NEGATIVE (NEGATIVE); KETONE, URINE AUTO NEGATIVE (NEGATIVE); LEUKOCYTE ESTERASE, URINE AUTO NEGATIVE (NEGATIVE); MUCUS, URINE SMALL (NEGATIVE); NITRITE, URINE AUTO NEGATIVE (NEGATIVE); PROTEIN, URINE AUTO NEGATIVE (NEGATIVE); RBC, URINE AUTO 1 /HPF (0-3); SQUAMOUS EPITHELIAL CELL UR AU 6 /HPF (0-6); UROBILINOGEN, URINE AUTO 0.2 mg/dL (0.0-2.0); WBC, URINE AUTO 2 /HPF (0-3)
== END ==
LOC: M LAB REF 21:39
PROVIDERS: ATTEND Physician Assistant Medical
DX: N39.0 Urinary tract infection, site not specified (principal)

== ENCOUNTER → 2023-11-10 | Outpatient (REF) | payer OTHER ==
[2023-11-10 13:48] LABS: APPEARANCE, URINE HAZY (CLEAR); BACTERIA, URINE AUTO NEGATIVE (NEGATIVE); BILIRUBIN, URINE AUTO NEGATIVE (NEGATIVE); BLOOD, URINE BLOOD NEGATIVE (NEGATIVE); COLOR, URINE AMBER (YELLOW); GLUCOSE, URINE (UA) AUTO NEGATIVE (NEGATIVE); KETONE, URINE AUTO NEGATIVE (NEGATIVE); LEUKOCYTE ESTERASE, URINE AUTO NEGATIVE (NEGATIVE); MUCUS, URINE SMALL (NEGATIVE); NITRITE, URINE AUTO POSITIVE (NEGATIVE); PROTEIN, URINE AUTO NEGATIVE (NEGATIVE); RBC, URINE AUTO 2 /HPF (0-3); SPECIFIC GRAVITY URINE AUTO 1.018 (1.002-1.035); SQUAMOUS EPITHELIAL CELL UR AU 4 /HPF (0-6); WBC, URINE AUTO 3 /HPF (0-3)
== END ==
LOC: M LAB REF 12:33
PROVIDERS: ATTEND Physician Assistant
DX: N39.0 Urinary tract infection, site not specified (principal)